=== PATIENT | male | born 1985 | race Caucasian/White ===

== ENCOUNTER 2022-04-28 16:34 | Inpatient (IN) | payer MEDICAID, SELFPAY ==
[2022-04-28 16:45] VITALS: BMI 26.6
--- NOTE | 2022-04-28 16:55 | W.ED.PSYCHS ---
HPI - Psych General: Chief Complaint: ER Hold Stated Complaint: PSYCHOSIS Time Seen by Provider: 04/28/22 16:35 Source: patient and EMS Mode of arrival: EMS Limitations: no limitations History of Present Illness: 36-year-old male who is currently homeless states that he did arrive yesterday and [place] he states that he has been having some hallucinations he states that he feels like that he can control animals at times he denies any suicidal homicidal thoughts. He denies any worsening improving factors. Patient is disheveled. He is paranoid as well with his hallucinations patient is not on any meds Associated symptoms: Reports delusions Review of Systems Const: Denies: fever(s), chills, body aches or change in appetite Eyes: Denies: blurry vision or eye discomfort ENMT: Denies: throat pain or dental pain Card: Denies: chest pain Resp: Denies: dyspnea GI: Denies: abdominal pain, nausea, vomiting or diarrhea : Denies: dysuria Musc: Denies: neck pain or back pain Skin/Breast: Denies: rash Neuro: Denies: headache(s) Psych: Reports: paranoia Virgilio/Lymph: Denies: easy bruising All/Imm: Denies: urticaria PFSH ED PFSH: Social History (Updated 04/28/22 @ 16:56 by Lisa Ash MD) Substance/Drug Use: current Physical Exam Const: COMMON NORMALS: patient oriented x3 GENERAL APPEARANCE: disheveled HENMT: COMMON NORMALS: normocephalic and atraumatic HEAD & SCALP: normocephalic and atraumatic Eye: COMMON NORMALS: Equal, round and reactive pupils present and EOMs intact bilaterally PUPIL: Yes Equal, round and reactive pupils present Neck/C-Spine: COMMON NORMALS: full ROM and supple Chest: COMMONS NORMALS: normal inspection of the chest and normal palpation of entire chest wall Resp: COMMON NORMALS: normal respiratory effort, No retractions, No use of accessory muscles and clear to auscultation bilaterally AUSCULTATION: clear to auscultation bilaterally Cardio: COMMON NORMALS: regular rate, regular rhythm and No murmurs present (Cardio) RATE: regular rate RHYTHM: regular rhythm GI: COMMON NORMALS: Normal to inspection, nondistended, normoactive bowel sounds present, Soft to palpation, non-tender and no masses PALPATION: Yes Soft to palpation Extremity: COMMON NORMALS: normal to inspection and full ROM Neuro: COMMON NORMALS: patient oriented x3, moves all extremities and no focal motor deficits Psych: COMMON NORMALS: cooperative THOUGHT CONTENT: Yes delusions and Yes Hallucination(s) present Skin: COMMON NORMALS: no rashes or lesions noted and no wounds GENERAL SKIN EXAM: no rashes or lesions noted Course Vital Signs: Vital signs: Vital Signs Pulse Rate 63 04/29/22 04:04 Respiratory Rate 18 04/29/22 04:04 Blood Pressure 96/59 04/29/22 04:04 Pulse Oximetry 96 04/29/22 04:04 Oxygen Delivery Me thod 04/29/22 01:24 MDM - Psych Medical Decision Making Patient presents here with acute psychosis. Patient is having hallucinations he is paranoid as well. He believes that he is able to control animals I patient evaluated by Dr. Dorado he feels he needs to be admitted at this time patient placed under 96-hour hold as he is psychotic and unsafe on his own Lab Data : 04/28/22 20:20 04/28/22 20:20 Discharge Plan Discharge Patient Disposition: Admitted As Inpatient Admit Provider: Jameel Dorado Clinical Impression: Acute psychosis Condition: Stable Coding Level of Care Code ED Human Resources Compensation Analyst for Chg Fwd Exam Comprehensive
[2022-04-28] MEDS: LORazepam 2 mg Tablet PO (18:17)
[2022-04-28] MEDS: ziprasidone 20 mg/mL SDV IM (18:17)
[2022-04-28 20:59] LABS: Basophils % 0.5 %; Eosinophils % 0.6 %; Hematocrit 44.8 % (42.0-52.0); Hemoglobin 14.9 g/dL (11.7-16.6); Lymphocytes # 2.1 10^3/uL (0.8-4.8); Lymphocytes % 31.7 %; Mean Corpuscular HGB Conc 33.3 g/dL (30.0-36.0); Mean Corpuscular Volume 96.1 fl (80-94); Mean Platelet Volume 10.7 fL (7.4-10.4); Monocytes # 0.4 10^3/uL (0.2-0.9); Monocytes % 6.3 %; Neutrophils # 3.95 10^3/uL (1.8-7.7); Neutrophils % 60.7 %; Nucleated Red Blood Cells % 0 %; Platelet Count 218 10^3/cmm (130-400); Red Blood Count 4.66 10^6/uL (4.1-5.3); Red Cell Distribution Width 12.6 % (12.1-15.1); White Blood Count 6.5 10^3/uL (4.0-10.0)
[2022-04-28 21:16] LABS: Alanine Aminotransferase 12 U/L (0-41); Albumin Level 3.9 g/dL (3.5-5.2); Alkaline Phosphatase 105 U/L (40-130); Blood Urea Nitrogen 17 mg/dL (6-20); Calcium 9.2 mg/dL (8.5-10.5); Carbon Dioxide 24 mmol/L (22-29); Chloride 104 mmol/L (98-107); Globulin 2.7 g/dL (1.3-4.6); Glomerular Filtration Rate 129.1 mL/min (90-130); Glucose 102 mg/dL (65-115); Osmolality Calculated 290 mOsm/kg (285-295); Sodium 139 mmol/L (136-145); Total Bilirubin 0.2 mg/dL (0.15-1.2); Total Protein 6.6 g/dL (6.6-8.7)
[2022-04-28 21:19] LABS: Acetaminophen < 5.0 ug/mL (10-30); Alcohol Level < 10 mg/dL (0-10); Aspartate Amino Transferase 17 U/L (0-40); Salicylate < 0.3 mg/dL (3-10)
[2022-04-29 01:15] LABS: Amphetamines Screen Urine Negative (Negative); Barbiturates Screen Urine Negative (Negative); Benzodiazepines Screen Urine Positive (Negative); Cocaine Screen Urine Negative (Negative); Opiate Screen Urine Negative (Negative); PCP Screen Urine Negative (Negative); THC Screen Urine Positive (Negative)
[2022-04-29 01:22] VITALS: BP 106/68; PULSE 94; RESP 18; O2SAT 97
[2022-04-29 04:04] VITALS: BP 96/59; PULSE 63; RESP 18; O2SAT 96
--- NOTE | 2022-04-29 04:38 | PC.NURSE ---
Pt awake and making conversation. He states he was in [place] where he gained a following of people who wanted to jain him so he had to leave. [place] he lived in airport terminals and other places along the way where he had to eat ketchup packets at times to survive. Pt in no apparent distress and requested coffee and food. Pt was given a cup of coffee, a sandwich, and a fruit cup.
[2022-04-29] MEDS: nicotine 21 mg Patch 1 PATCH TRANSDERMA ×2 (05:47→18:39)
[2022-04-29] MEDS: OLANZapine 5 mg ODT PO (07:05)
--- NOTE | 2022-04-29 08:35 | PC.NURSE ---
Pt given breakfast tray, he ate and is sleeping now
[2022-04-29 09:28] VITALS: BP 90/52; PULSE 84; RESP 14
[2022-04-29 18:42] VITALS: BP 121/73; PULSE 70; RESP 14
[2022-04-30 00:50] VITALS: PULSE 58; RESP 18; O2SAT 96
[2022-04-30 06:42] VITALS: BP 118/77; PULSE 71; RESP 18
[2022-04-30] MEDS: OLANZapine 5 mg ODT PO (08:56)
[2022-04-30] MEDS: nicotine 21 mg Patch 1 PATCH TRANSDERMA (08:57)
[2022-04-30 11:55] VITALS: BP 118/77; PULSE 78; RESP 16; O2SAT 96
[2022-04-30 14:00] VITALS: BP 104/75; PULSE 83; RESP 16; TEMP 36.7; O2SAT 97
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
[2022-04-30 20:18] VITALS: BP 104/58; PULSE 80; RESP 18; TEMP 36.3; O2SAT 96
[2022-05-01] MEDS: alum-mag-hydroxide-sime 30 mL UDC PO (05:50)
[2022-05-01 06:00] VITALS: BP 113/73; PULSE 85; RESP 18; TEMP 36.9; O2SAT 96
[2022-05-01] MEDS: nicotine 21 mg Patch 1 PATCH TRANSDERMA (08:13)
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
[2022-05-01 14:00] VITALS: BP 117/84; PULSE 89; RESP 16; TEMP 37; O2SAT 98
[2022-05-01 21:27] VITALS: BP 108/67; PULSE 80; RESP 18; TEMP 36.6; O2SAT 96
[2022-05-02] MEDS: hyDROXYzine 25 mg Capsule 50 MG PO (02:07)
--- NOTE | 2022-05-02 03:31 | PC.NURSE ---
50mg vistaril given for anxiety / sleep with good result.
[2022-05-02 06:00] VITALS: BP 103/62; PULSE 86; RESP 18; TEMP 36.6; O2SAT 97
[2022-05-02] MEDS: nicotine 21 mg Patch 1 PATCH TRANSDERMA (08:28)
[2022-05-02 14:00] VITALS: BP 126/75; PULSE 85; RESP 18; TEMP 36.6; O2SAT 99
--- NOTE | 2022-05-02 16:41 | W.PM.NPUPNS ---
Subjective NPU Subjective: Patient presents today reporting that he continues to be resistant to medication. He continues to tell odd stories about the circumstances that led to him being there. He continues to report that he has had significant addiction issues in the past but reports over the last 6 months that save a few situations he has been very solid in his recovery. Even though there were moments and at times inappropriate smiles and laughter, he has been much clearer in conversation today. He endorses not liking medications make him feel and not believing he has psychosis. Mental Status Exam MSE Comments: This is a well-nourished well-developed bearded white male in hospital scrubs with limited grooming and eye contact. No abnormal movements except for psychomotor studies. Cooperative with exam in mild distress. Inappropriate smiling and occasional laughter. Speech was more spontaneous and more normal rate and volume. Mood described as better, affect less subdued, but odd. Thought process becoming more organized. Thought content: He had no inwardly or outwardly directed aggression, no delusions reported but clear paranoid, persecutory, bizarre delusions noted, there were no auditory or visual hallucinations noted but at times he did appear to be attending to internal stimuli. Attention concentration appeared limited and memory was limited but none were formally tested. He is alert and oriented x3, but not purpose. Insight, judgment and impulse control are impaired. Vitals/I&O/Wt Last Vital Signs Temp 98.2 F 05/02/22 21:24 Pulse 82 05/02/22 21:24 Resp 20 H 05/02/22 21:24 BP 113/68 05/02/22 21:24 Pulse Ox 98 05/02/22 21:24 O2 Del Method 05/02/22 21:24 Data NPU : 04/28/22 20:20 04/28/22 20:20 A&P Assessment and plan (1) Acute psychosis: Status: Acute Plan This 36-year-old white male with a long history of mental health and addiction issues who presents with active psychosis and not on any medication. 1. Continue current medication. We will start Invega 6 mg p.o. every morning if we obtain his permission. 2. Continue every 15 minute checks safety. 3. Encourage individual, group and milieu therapy. 4. Encourage sober living treatment after discharge at the high level of care to which he is willing to commit. 5. Attempt to find sources for collateral information. Involuntary Hold Information 96 Hour Hold: 96 Hour Involuntary Admission: Yes 96 Hour Hold Ending Date: 04/04/22 96 Hour Hold Ending Time: 00:01 Attestations NPU Medical Necessity Statement*: Inpatient hospitalization is medically necessary if he could be appropriate intervention at this time. We will monitor medications and initiate or make changes as indicated. Likely to stay 6-9 days. Coding Level of Care Code Acute Bilingual Interpreter for Dalton Fwmimi Diagnoses Acute psychosis F23
[2022-05-02 21:24] VITALS: BP 113/68; PULSE 82; RESP 20; TEMP 36.8; O2SAT 98
[2022-05-03 06:00] VITALS: BP 102/61; PULSE 87; RESP 18; TEMP 36.7; O2SAT 97
--- NOTE | 2022-05-03 08:20 | PC.NURSE ---
Nursing Behavioral Assessment Patient states he slept well last night. He denies any visual or auditory hallucinations. He does state he dreams of his past, but didn't elaborate. When asked what his reasoning was for moving from [place] to [place] he stated, Ummm, do you really want to know? When I let him know I was comfortable with knowing the patient stated when he lived in [place] he sent out a signal in the shape of a hand with an eye in the middle. He stated he then believed he was now in different societies due to this, including the [employer]. He believes when he was at [employer] all of the trees there were hollow. He also stated he noticed all of the staff were and when he would talk they would all get on their phones. Patient stated he started to get weird calls from his friends. He also stated he was addicted to opiates and kept methadone on the side as insurance. Patient states every time he reads a book he starts at the first paragraph of the fourth chapter and it is the same as his life. Patient was calm and cooperative.
[2022-05-03] MEDS: nicotine 21 mg Patch 1 PATCH TRANSDERMA (08:50)
[2022-05-03 14:00] VITALS: BP 120/74; PULSE 68; RESP 18; TEMP 36.8; O2SAT 96
--- NOTE | 2022-05-03 16:51 | P.NPUPN_ITS ---
Subjective NPU Subjective: Patient presents today showing continued improvement in cognitive clearing. He continues to be resistant to the idea of medications and seems to be having resolution of his disorganization that was noted on admission. We discussed the plan for evaluation in the morning so the decision can be made about whether filed for a 21-day hold versus discharging him would be most appropriate. We discussed the fact that given his improvement in his resistance to medication likely plan will be for discharge with referrals appropriate resources and position that if he returned and was having similar thought disorder we will lean towards extending and insisting upon medication. Mental Status Exam MSE Comments: This is a well-nourished well-developed bearded white male in hospital scrubs with limited grooming and eye contact. No abnormal movements except for mild psychomotor retardation. Cooperative with exam in no acute distress. Speech was more spontaneous and more normal rate and volume. Mood described as better, affect less subdued and less odd. Thought process becoming more organized. Thought content: He denies suicidal or homicidal ideation, no delusions reported and paranoid, persecutory, bizarre delusions greatly reduced, there were no auditory or visual hallucinations noted. Attention concentration appeared improving and memory was more reliable but none were formally tested. He is alert and oriented x3. Insight, judgment and impulse control are improving. Vitals/I&O/Wt Last Vital Signs Temp 98.0 F 05/03/22 06:00 Pulse 87 05/03/22 06:00 Resp 18 05/03/22 06:00 BP 102/61 05/03/22 06:00 Pulse Ox 97 05/03/22 06:00 O2 Del Method 05/03/22 06:00 Data NPU : 04/28/22 20:20 04/28/22 20:20 A&P Assessment and plan (1) Acute psychosis: Status: Acute Plan This 36-year-old white male with a long history of mental health and addiction issues who presents with active psychosis and not on any medication. 1. Continue current medication. Patient resistant to medication likely discharge off of medication but refer to psychiatry. 2. Continue every 15 minute checks safety. 3. Encourage individual, group and milieu therapy. 4. Encourage sober living treatment after discharge at the high level of care to which he is willing to commit. 5. Likely discharged to [facility] tomorrow with follow-up and continued encouragement including in both mental health and sober living treatment. Involuntary Hold Information 96 Hour Hold: 96 Hour Involuntary Admission: Yes 96 Hour Hold Ending Date: 04/04/22 96 Hour Hold Ending Time: 00:01 Attestations NPU Medical Necessity Statement*: Inpatient hospitalization is medically necessary if he could be appropriate intervention at this time. We will monitor medications and initiate or make changes as indicated. Likely discharge tomorrow. Coding Level of Care Code Acute Mechanical Assembly Technician for Dalton Boyer Diagnoses Acute psychosis F23
[2022-05-03 20:25] VITALS: RESP 18
[2022-05-04 06:00] VITALS: BP 110/67; PULSE 72; RESP 18; TEMP 36.5; O2SAT 98
[2022-05-04] MEDS: nicotine 21 mg Patch 1 PATCH TRANSDERMA (08:41)
--- NOTE | 2022-05-04 08:48 | PC.NURSE ---
PT SITTING ON BENCH NEAR NURSES STATION. STATES HE IS ALWAYS ANXIOUS BUT DECLINES MEDICATIONS TO REDUCE ANXIETY. GUERLINE COMMENTS I NEED TO GET ALL THAT WASTE OUT OF MY SYSTEM AND DON'T NEED ANYMORE, IT MAKES ME NOT FEEL RIGHT. STATES HE IS SLEEPING BETTER. REPORTS ANXIETY 01/20 AND BUT CONTINUES TO DECLINE MEDICATIONS. DENIES SI/HI AND AVH AT THIS TIME. SUPPORT VOICED.
--- NOTE | 2022-05-04 11:04 | W.PM.NPUDCS ---
Diagnoses at Discharge Discharge Diagnosis (1) Acute psychosis: Status: Acute Reason for Visit Reason for Visit: PSYCHOSIS Brief History: History of Present Illness Jocelyn Dorado is a 36 year old male who presented Emergency Department with the following report: Chief Complaint: ER Hold Stated Complaint: PSYCHOSIS Time Seen by Provider: 04/28/22 16:35 Source: patient and EMS Mode of arrival: EMS Limitations: no limitations History of Present Illness: 36-year-old male who is currently homeless states that he did arrive yesterday and [place] he states that he has been having some hallucinations he states that he feels like that he can control animals at times he denies any suicidal homicidal thoughts. He denies any worsening improving factors. Patient is disheveled. He is paranoid as well with his hallucinations patient is not on any meds Associated symptoms: Reports delusions. He was admitted to the neuropsychiatric unit for definitive treatment of those issues. He presents today being fairly odd in his interactions with staff and this telegraphic typewriter repairer. He wrote a love letter to one of the nurses that was fairly abstract and hard to follow and was basically a collection of pictures and names there were also fairly abstract. Much of his conversation was hard to follow and marked by disorganization. He did share that he has been hospitalized multiple times in his life and cannot really identify outpatient services. He did endorse at some point taking Abilify but was alluding to not really liking it. He denied taking Invega in the past and agreed to consider starting that tomorrow. He did share a history of drug use that likely encompasses every drug if needed something or not, that he used. But other than that he mostly had interactions and responses with inappropriate smiling and occasional laughter. An excerpt from his 2011 inpatient stay here is included below for context. He was diagnosed with bipolar disorder and borderline personality disorder in that hospitalization. Per his 12/26/2010 [facility] inpatient psychiatric evaluation: DATE OF ADMISSION: 12/25/2010 DATE OF DICTATION: 12/26/2010 DATE OF : 1985 IDENTIFYING DATA: The patient is a 25-year-old unemployed single white male with a date of of 1985. He is on a 96-hour hold. PRESENT PROBLEM: Suicidality. HISTORY OF PRESENT PROBLEM: This 25-year-old white male was admitted via the emergency room. He drinks daily and he was watching a friend's cat when he was intoxicated. The cat got away and he was upset and placed a hose on the exhaust of his car into the car, trying to commit suicide. When he went back to leave something for them, they stopped him from harming himself. He cut himself with a knife on the arms. He is unemployed. He is unable to hold any employment. He has no legal actions pending. He is currently unemployed. 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 He has had a negative history of physical, emotional, or sexual abuse. He states that he has in the past has experienced auditory hallucinations. He has had financial problems and he has had loss of a job. Admission laboratory studies show him to be positive for marijuana. He had 183 blood alcohol. His parents had . He has four siblings. There is a questionable history of schizophrenia in his family. He has had a brother that has attempted suicide. The remainder of his history was unremarkable. Hospital Course Hospital Course He slowly acclimated to the individual, group and milieu therapies provided.? From the beginning he was resistant to the fact that he needed to be in the hospital and was resistant to the idea that he needed medication. We had considered putting him on a 21-day hold but over the period of the hospitalization his disorganization and psychosis slowly resolved to the point that he no longer appeared to be confused at a level that would pose a danger to himself or others. We continue to discuss the fact that we still believe he has a psychiatric illness that needs treated but lacked grounds to really pursue an extended stay. We agreed though that if he returns with similar presentation that we would feel compelled to move to a point where we could administer medication even if it was against as will. He showed significant improvement and was able to contract for safety outside of the hospital prior to discharge.? During the hospitalization, patient had routine laboratory studies which were within normal limits except for few outliers.? Additionally there was a general medical evaluation which was also within normal limits and revealed no new acute processes. Discharge Summary: At the time of discharge, he denied lethality and psychosis was resolving.? Mood and anxiety were well managed.? Patient endorsed a plan to avoid all drugs of abuse and follow-up with the aftercare recommendations of the treatment team.? Patient was evaluated and deemed to be absent credible lethality, and had achieved significant benefit from an inpatient hospitalization and his hold was ending and we lacked solid grounds to force continued hospitalization, so he was discharged. Involuntary Hold Information 96 Hour Hold: 96 Hour Involuntary Admission: Yes 96 Hour Hold Ending Date: 04/04/22 96 Hour Hold Ending Time: 00:01 Mental Status Exam MSE Comments: This is a well-nourished well-developed bearded white male in hospital scrubs with limited grooming and eye contact. No abnormal movements except for mild psychomotor retardation. Cooperative with exam in no acute distress. Speech was more spontaneous and more normal rate and volume. Mood described as better, affect less subdued and less odd. Thought process becoming more organized. Thought content: He denies suicidal or homicidal ideation, no delusions reported and paranoid, persecutory, bizarre delusions greatly reduced, there were no auditory or visual hallucinations noted. Attention concentration appeared improving and memory was more reliable but none were formally tested. He is alert and oriented x3. Insight, judgment and impulse control are improving. Discharge Data Studies Completed and Pending: Laboratory Results WBC 6.5 10^3/uL (4.0- 10.0) 04/28/22 20:20 RBC 4.66 10^6/uL (4.1 -5.3) 04/28/22 20:20 Hgb 14.9 g/dL (11.7-1 6.6) 04/28/22 20:20 Hct 44.8 % (42.0-52.0 ) 04/28/22 20:20 MCV 96.1 fl (80-94) H 04/28/22 20:20 MCH 32.0 pg (28.0-34. 0) 04/28/22 20:20 MCHC 33.3 g/dL (30.0-3 6.0) 04/28/22 20:20 RDW 12.6 % (12.1-15.1 ) 04/28/22 20:20 Plt Count 218 10^3/cmm (130 -400) 04/28/22 20:20 MPV 10.7 fL (7.4-10.4 ) H 04/28/22 20:20 Neut % (Auto) 60.7 % 04/28/22 20:20 Lymph % (Auto) 31.7 % 04/28/22 20:20 [place] % (Auto) 6.3 % 04/28/22 20:20 Eos % (Auto) 0.6 % 04/28/22 20:20 Baso % (Auto) 0.5 % 04/28/22 20:20 Neut # (Auto) 3.95 10^3/uL (1.8 -7.7) 04/28/22 20:20 Lymph # (Auto) 2.1 10^3/uL (0.8- 4.8) 04/28/22 20:20 [place] # (Auto) 0.4 10^3/uL (0.2- 0.9) 04/28/22 20:20 Eos # (Auto) 0.0 10^3/uL (0.0- 0.8) 04/28/22 20:20 Baso # (Auto) 0.0 10^3/uL (0.0- 0.1) 04/28/22 20:20 Nucleated RBC % (a uto) 0 % 04/28/22 20:20 Nucleated RBCs # 0.0 /100WBC 04/28/22 20:20 Sodium 139 mmol/L (136-1 45) 04/28/22 20:20 Potassium 4.0 mmol/L (3.5-5 .1) 04/28/22 20:20 Chloride 104 mmol/L (98-10 7) 04/28/22 20:20 Carbon Dioxide 24 mmol/L (22-29) 04/28/22 20:20 Anion Gap 15.0 (5-19) 04/28/22 20:20 BUN 17 mg/dL (6-20) 04/28/22 20:20 Creatinine 0.7 mg/dL (0.7-1. 2) 04/28/22 20:20 GFR Calculation 129.1 mL/min (90- 130) 04/28/22 20:20 Glucose 102 mg/dL (65-115 ) 04/28/22 20:20 Calculated Osmolal ity 290 mOsm/kg (285- 295) 04/28/22 20:20 Calcium 9.2 mg/dL (8.5-10 .5) 04/28/22 20:20 Total Bilirubin 0.2 mg/dL (0.15-1 .2) 04/28/22 20:20 AST 17 U/L (0-40) 04/28/22 20:20 ALT 12 U/L (0-41) 04/28/22 20:20 Alkaline Phosphata se 105 U/L (40-130) 04/28/22 20:20 Total Protein 6.6 g/dL (6.6-8.7 ) 04/28/22 20:20 Albumin 3.9 g/dL (3.5-5.2 ) 04/28/22 20:20 Globulin 2.7 g/dL (1.3-4.6 ) 04/28/22 20:20 Salicylates < 0.3 mg/dL (3-10 ) L 04/28/22 20:20 Urine Opiates Scre en Negative ng/mL (N egative) 04/29/22 00:31 Acetaminophen < 5.0 ug/mL (10-3 0) L 04/28/22 20:20 Ur Barbiturates Sc reen Negative ng/mL (N egative) 04/29/22 00:31 Ur Phencyclidine S crn Negative ng/mL (N egative) 04/29/22 00:31 Ur Amphetamines Sc reen Negative ng/mL (N egative) 04/29/22 00:31 U Benzodiazepines Scrn Positive ng/mL (N egative) H 04/29/22 00:31 Urine Cocaine Scre en Negative ng/mL (N egative) 04/29/22 00:31 U Marijuana (THC) Screen Positive ng/mL (N egative) H 04/29/22 00:31 Ethyl Alcohol < 10 mg/dL (0-10) 04/28/22 20:20 Vitals: Last Vital Signs Temp 97.7 F 05/04/22 06:00 Pulse 72 05/04/22 06:00 Resp 18 05/04/22 06:00 BP 110/67 05/04/22 06:00 Pulse Ox 98 05/04/22 06:00 O2 Del Method 05/04/22 06:00 Discharge Plan Discharge Patient Disposition: Home Condition: Stable Prescriptions: No Action No Known Home Medications Discharge Orders: Discharge Order (Routine); Ordered 05/04/22 Ordered By: Jameel Dorado Referrals: [facility] [place] [facility] [Outside] Discharge Diet: Regular Discharge Activity: Resume usual activity Patient Instructions: Opioid Safety Discharge Attestations NPU Time Spent in Discharge Care*: less than 30 min Specific Discharge Activities: Specific discharge activities: educating patient, discussing with case maker/social workers/dc planners, documenting/other paperwork and evaluating patient/reviewing data Coding Level of Care Code Acute Chg FW DC note Diagnoses Acute psychosis F23
[2022-05-04 11:28] VITALS: BP 110/67; PULSE 72; RESP 18; TEMP 36.5; O2SAT 98
== END 2022-05-04 12:08 | disposition home or self-care (01) | DRG 885 ==
LOC: ER 19:26 → ER IP 04-29 06:12 → NP 05-01 07:54
PROVIDERS: Admitting Provider Psychiatry & Neurology Psychiatry; Emergency Provider Emergency Medicine; Visit Provider Psychiatry & Neurology Psychiatry
DX: F23 Brief psychotic disorder (principal); Z59.00 Homelessness unspecified
CPT/HCPCS: 36415; 80053; 80306; 80307; 85025; 96372; 97150; 97165; 99285; J3486

== ENCOUNTER 2022-05-17 15:28 | Inpatient (IN) | payer MEDICAID, SELFPAY ==
[2022-05-17 15:55] VITALS: BP 131/81; PULSE 85; RESP 16; TEMP 36.6; O2SAT 97; BMI 25.8
--- NOTE | 2022-05-17 15:59 | ED_ITS ---
HPI - General Adult General: Chief complaint: Psychiatric Symptoms Stated complaint: psych evaluaton Time Seen by Provider: 05/17/22 15:53 History of Present Illness: HPI: [36]yo patient w/ hx of hallucination presenting with worsening auditory hallucinations and psychosis. for On arrival, the patient is AAOx3 and cooperative with my evaluation. No focal complaints of chest pain, shortness of breath, palpitations, N/V, focal GI/ complaints. Currently denies SI/HI. Onset: acute Duration: ongoing Location: home Severity: severe Associated symptoms: Deny chest pain, dyspnea, nausea, rash, palpitations or vomiting Review of Systems Const: Denies: fever(s) or chills Eyes: Denies: change in vision ENMT: Denies: mouth pain Card: Denies: chest pain or palpitations Resp: Denies: dyspnea or non-productive cough GI: Denies: abdominal pain, nausea, vomiting or diarrhea : Denies: dysuria Musc: Denies: extremity pain Skin/Breast: Denies: rash or new lesions Neuro: Denies: weakness in extremities Psych: Reports: other (+psychosis, hallucinations) Virgilio/Lymph: Denies: easy bruising PFSH ED PFSH: Medical History Hallucination Social History Smoking and tobacco status: never smoked Alcohol intake: never Substance/Drug Use: never Physical Exam Const: COMMON NORMALS: alert HENMT: COMMON NORMALS: atraumatic HEAD & SCALP: atraumatic MOUTH: moist mucous membranes not abnormal Eye: COMMON NORMALS: EOMs intact bilaterally and conjunctivae normal CONJUNCTIVA: Yes conjunctivae normal Neck/C-Spine: COMMON NORMALS: full ROM and supple Resp: COMMON NORMALS: normal respiratory effort and clear to auscultation bilaterally AUSCULTATION: clear to auscultation bilaterally Cardio: COMMON NORMALS: regular rate RATE: regular rate GI: COMMON NORMALS: Soft to palpation and non-tender PALPATION: Yes Soft to palpation Extremity: COMMON NORMALS: full ROM Neuro: SENSORIUM/ORIENTATION: Yes alert MOTOR EXAM: No Abnormal motor strength present and Other motor observations present (no focal motor deficits) Psych: COMMON NORMALS: speech normal SPEECH: Yes normal speech MOOD & AFFECT: Yes euthymic mood Course Vital Signs: Vital signs: Vital Signs Temperature 97.8 F 05/17/22 16:00 Pulse Rate 80 05/17/22 16:00 Respiratory Rate 16 05/17/22 16:00 Blood Pressure 130/75 05/17/22 16:00 Pulse Oximetry 97 05/17/22 16:00 Oxygen Delivery Me thod 05/17/22 16:00 MDM - General Adult Medical Decision Making [36]yo patient w/ hx of hallucinations presenting for psychosis and auditory hallucination. HDS, exam within normal limit Thoughts are linear and organized, and the patient has no VH, SI or HI. Clinically the patient displays no overt toxidrome; they are well appearing, with low suspicion for toxic ingestion given history and exam. Symptoms unlikely 2/2 anemia, hypothyroidism, infection, or ICH. Workup: CBC, CMP, Lipase, salicylate/tylenol, serum ethanol, UDS Lab findings: wnl, +marijuana in the urine [4:30pm] On reassessment, labs and workup wnl. Patient is hemodynamically stable with no acute medical complaints. Case discussed with psychiatric provider Dr. Hull at [facility] psych inpatient with recommendation for admission Disposition: Psych Lab Data : 05/17/22 17:40 05/17/22 17:40 Laboratory Results WBC 6.9 10^3/uL (4.0-10.0) 05/17/22 17:40 RBC 4.98 10^6/uL (4.1-5.3) 05/17/22 17:40 Hgb 15.9 g/dL (11.7-16.6) 05/17/22 17:40 Hct 48.1 % (42.0-52.0) 05/17/22 17:40 MCV 96.6 fl (80-94) H 05/17/22 17:40 MCH 31.9 pg (28.0-34.0) 05/17/22 17:40 MCHC 33.1 g/dL (30.0-36.0) 05/17/22 17:40 RDW 12.7 % (12.1-15.1) 05/17/22 17:40 Plt Count 200 10^3/cmm (130-400) 05/17/22 17:40 MPV 10.9 fL (7.4-10.4) H 05/17/22 17:40 Neut % (Auto) 63.9 % 05/17/22 17:40 Lymph % (Auto) 26.2 % 05/17/22 17:40 [place] % (Auto) 6.4 % 05/17/22 17:40 Eos % (Auto) 2.8 % 05/17/22 17:40 Baso % (Auto) 0.6 % 05/17/22 17:40 Neut # (Auto) 4.40 10^3/uL (1.8-7.7) 05/17/22 17:40 Lymph # (Auto) 1.8 10^3/uL (0.8-4.8) 05/17/22 17:40 [place] # (Auto) 0.4 10^3/uL (0.2-0.9) 05/17/22 17:40 Eos # (Auto) 0.2 10^3/uL (0.0-0.8) 05/17/22 17:40 Baso # (Auto) 0.0 10^3/uL (0.0-0.1) 05/17/22 17:40 Nucleated RBC % (auto) 0 % 05/17/22 17:40 Nucleated RBCs # 0.0 /100WBC 05/17/22 17:40 Sodium 139 mmol/L (136-145) 05/17/22 17:40 Potassium 4.1 mmol/L (3.5-5.1) 05/17/22 17:40 Chloride 103 mmol/L (98-107) 05/17/22 17:40 Carbon Dioxide 25 mmol/L (22-29) 05/17/22 17:40 Anion Gap 15.1 (5-19) 05/17/22 17:40 BUN 10 mg/dL (6-20) 05/17/22 17:40 Creatinine 0.8 mg/dL (0.7-1.2) 05/17/22 17:40 GFR Calculation 110.7 mL/min (90-130) 05/17/22 17:40 Glucose 117 mg/dL (65-115) H 05/17/22 17:40 Calculated Osmolality 288 mOsm/kg (285-295) 05/17/22 17:40 Calcium 8.8 mg/dL (8.5-10.5) 05/17/22 17:40 Total Bilirubin 0.3 mg/dL (0.15-1.2) 05/17/22 17:40 AST 13 U/L (0-40) 05/17/22 17:40 ALT 14 U/L (0-41) 05/17/22 17:40 Alkaline Phosphatase 117 U/L (40-130) 05/17/22 17:40 Total Protein 6.7 g/dL (6.6-8.7) 05/17/22 17:40 Albumin 3.9 g/dL (3.5-5.2) 05/17/22 17:40 Globulin 2.8 g/dL (1.3-4.6) 05/17/22 17:40 Lipase 22 U/L (13-60) 05/17/22 17:40 Salicylates < 0.3 mg/dL (3-10) L 05/17/22 17:40 Urine Opiates Screen Negative ng/mL (Negative) 05/17/22 17:26 Acetaminophen < 5.0 ug/mL (10-30) L 05/17/22 17:40 Ur Barbiturates Screen Negative ng/mL (Negative) 05/17/22 17:26 Ur Phencyclidine Scrn Negative ng/mL (Negative) 05/17/22 17:26 Ur Amphetamines Screen Negative ng/mL (Negative) 05/17/22 17:26 U Benzodiazepines Scrn Negative ng/mL (Negative) 05/17/22 17:26 Urine Cocaine Screen Negative ng/mL (Negative) 05/17/22 17:26 U Marijuana (THC) Screen Positive ng/mL (Negative) H 05/17/22 17:26 Ethyl Alcohol < 10 mg/dL (0-10) 05/17/22 17:40 Discharge Plan Discharge Patient Disposition: Admitted As Inpatient Clinical Impression: Psychosis, Auditory hallucination Coding Level of Care Code 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
[2022-05-17 16:00] VITALS: BP 130/75; PULSE 80; RESP 16; TEMP 36.6; O2SAT 97
[2022-05-17 17:47] LABS: Amphetamines Screen Urine Negative (Negative); Barbiturates Screen Urine Negative (Negative); Benzodiazepines Screen Urine Negative (Negative); Cocaine Screen Urine Negative (Negative); Opiate Screen Urine Negative (Negative); PCP Screen Urine Negative (Negative); THC Screen Urine Positive (Negative)
[2022-05-17 17:49] LABS: Basophils % 0.6 %; Eosinophils # 0.2 10^3/uL (0.0-0.8); Eosinophils % 2.8 %; Hematocrit 48.1 % (42.0-52.0); Hemoglobin 15.9 g/dL (11.7-16.6); Lymphocytes # 1.8 10^3/uL (0.8-4.8); Lymphocytes % 26.2 %; Mean Corpuscular HGB Conc 33.1 g/dL (30.0-36.0); Mean Corpuscular Hemoglobin 31.9 pg (28.0-34.0); Mean Corpuscular Volume 96.6 fl (80-94); Mean Platelet Volume 10.9 fL (7.4-10.4); Monocytes # 0.4 10^3/uL (0.2-0.9); Monocytes % 6.4 %; Neutrophils % 63.9 %; Nucleated Red Blood Cells % 0 %; Platelet Count 200 10^3/cmm (130-400); Red Blood Count 4.98 10^6/uL (4.1-5.3); Red Cell Distribution Width 12.7 % (12.1-15.1); White Blood Count 6.9 10^3/uL (4.0-10.0)
[2022-05-17 18:20] LABS: Alanine Aminotransferase 14 U/L (0-41); Albumin Level 3.9 g/dL (3.5-5.2); Alkaline Phosphatase 117 U/L (40-130); Anion Gap 15.1 (5-19); Aspartate Amino Transferase 13 U/L (0-40); Blood Urea Nitrogen 10 mg/dL (6-20); Calcium 8.8 mg/dL (8.5-10.5); Carbon Dioxide 25 mmol/L (22-29); Chloride 103 mmol/L (98-107); Creatinine Clr Calc Pharmacy 123.8691; Globulin 2.8 g/dL (1.3-4.6); Glomerular Filtration Rate 110.7 mL/min (90-130); Glucose 117 mg/dL (65-115); Lipase 22 U/L (13-60); Osmolality Calculated 288 mOsm/kg (285-295); Potassium 4.1 mmol/L (3.5-5.1); Sodium 139 mmol/L (136-145); Total Bilirubin 0.3 mg/dL (0.15-1.2); Total Protein 6.7 g/dL (6.6-8.7)
[2022-05-17 18:26] LABS: Acetaminophen < 5.0 ug/mL (10-30); Alcohol Level < 10 mg/dL (0-10); Salicylate < 0.3 mg/dL (3-10)
[2022-05-17 19:52] VITALS: BP 137/80; PULSE 79; RESP 16; TEMP 36.6; O2SAT 97
[2022-05-17 22:04] VITALS: BP 130/74; PULSE 85; RESP 18; TEMP 36.7; O2SAT 96
[2022-05-18 06:00] VITALS: BP 105/68; PULSE 79; RESP 16; TEMP 36.6; O2SAT 97
--- NOTE | 2022-05-18 09:37 | P.NPUHP_ITS ---
Providers/Chief Complaint Admitting Physician: Gonzalo Hull MD Chief Complaint: psych evaluaton HPI NPU History of Present Illness Matthew Dorado is a 36 year old male who presented to the emergency department with the following report: Chief complaint: Psychiatric Symptoms Stated complaint: psych evaluaton Time Seen by Provider: 05/17/22 15:53 History of Present Illness: HPI: [36]yo patient w/ hx of hallucination presenting with worsening auditory hallucinations and psychosis. for On arrival, the patient is AAOx3 and cooperative with my evaluation. No focal complaints of chest pain, shortness of breath, palpitations, N/V, focal GI/ complaints. Currently denies SI/HI. Onset: acute Duration: ongoing Location: home Severity: severe Associated symptoms: Deny chest pain, dyspnea, nausea, rash, palpitations or vomiting. He was admitted to the neuropsychiatric unit for definitive treatment of those issues. He presented today reporting that he is not sure exactly what happened. He told some fantastical stories about things happening that were most likely a representation of his psychosis. He described a situation where he was scraping his plate and that his fork was no longer there. He reported that as a sign that he was getting forked. He then was able to describe other situations where a [employer] facility appeared out of nowhere. It was unclear whether the hallucination was it not being there initially or it being there secondarily. He was mostly disorganized in the conversation and a fairly poor historian. We did however discuss our discharge conversation from April here and I described to him that I thought he was suffering from schizophrenia and that medication would be the appropriate intervention to avoid future of psychosis and psychotic episodes. But we gave him the benefit of the doubt in that situation and discharged him even though we felt strongly he needed the psychopharmacologic interventions. We discussed that now what he is reporting again appears to represent psychosis and that there is a need for medication management. We discussed the risks, benefits and alternatives of initiating Invega and he understood and agreed to proceed as is documented in this note. An excerpt of his 05/01/2022 inpatient [facility] is included below for context and the absence of substantive changes since then. Per his 05/01/22 health care inpatient psychiatric evaluation: History of Present Illness Jocelyn Dorado is a 36 year old male who presented Emergency Department with the following report: Chief Complaint: ER Hold Stated Complaint: PSYCHOSIS Time Seen by Provider: 04/28/22 16:35 Source: patient and EMS Mode of arrival: EMS Limitations: no limitations History of Present Illness:?? 36-year-old male who is currently homeless states that he did arrive yesterday and [place] he states that he has been having some hallucinations he states that he feels like that he can control animals at times he denies any suicidal homicidal thoughts.? He denies any worsening improving factors.? Patient is disheveled.? He is paranoid as well with his hallucinations patient is not on any meds Associated symptoms: Reports delusions. He was admitted to the neuropsychiatric unit for definitive treatment of those issues.? He presents today being fairly odd in his interactions with staff and this senior underwriter.? He wrote a love letter to one of the nurses that was fairly abstract and hard to follow and was basically a collection of pictures and names there were also fairly abstract.? Much of his conversation was hard to follow and marked by disorganization.? He did share that he has been hospitalized multiple times in his life and cannot really identify outpatient services.? He did endorse at some point taking Abilify but was alluding to not really liking it.? He denied taking Invega in the past and agreed to consider starting that tomorrow.? He did share a history of drug use that likely encompasses every drug if needed something or not, that he used.? But other than that he mostly had interactions and responses with inappropriate smiling and occasional laughter.? An excerpt from his 2011 inpatient stay here is included below for context.? He was diagnosed with bipolar disorder and borderline personality disorder in that hospitalization. Per his 12/26/2010 [facility] inpatient psychiatric evaluation: DATE OF ADMISSION:? 12/25/2010 DATE OF DICTATION:? 12/26/2010 DATE OF :? 1985 IDENTIFYING DATA: ? The patient is a 25-year-old unemployed single white male with a date of of 1985.? He is on a 96-hour hold. PRESENT PROBLEM:? Suicidality. HISTORY OF PRESENT PROBLEM:? This 25-year-old white male was admitted via the emergency room. ? He drinks daily and he was watching a friend's cat when he was intoxicated.? The cat got away and he was upset and placed a hose on the exhaust of his car into the car, trying to commit suicide.? When he went back to leave something for them, they stopped him from harming himself.? He cut himself with a knife on the arms.? He is unemployed.? He is unable to hold any employment.? He has no legal actions pending.? He is currently unemployed.? 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 He has had a negative history of physical, emotional, or sexual abuse.? He states that he has in the past has experienced auditory hallucinations.? He has had financial problems and he has had loss of a job.? Admission laboratory studies show him to be positive for marijuana.? He had 183 blood alcohol.? His parents had .? He has four siblings.? There is a questionable history of schizophrenia in his family.? He has had a brother that has attempted suicide.? The remainder of his history was unremarkable. Meds NPU Home Medications Medication Instructions Recorded Confirmed Last Taken Type No Known Home Medications 04/28/22 05/17/22 Unknown History Allergies Allergy/AdvReac Type Severity Reaction Status Date / Time No Known Allergies Allergy Verified 05/17/22 16:10 [facility] NPU PFS: Medical History Hallucination Social History Smoking and tobacco status: never smoked Alcohol intake: never Substance/Drug Use: never Mental Status Exam MSE Comments: This is a well-nourished well-developed bearded white male in h ospital scrubs with limited grooming and eye contact. No abnormal movements except for psychomotor studies. Cooperative with exam in mild distress. Inappropriate smiling and occasional laughter. Speech was limited and decreased rate and volume. Mood described as okay, affect subdued and odd. Thought process disorganized. Thought content: He had no inwardly or outwardly directed aggression, no delusions reported but clear paranoid, persecutory, bizarre delusions noted, there were no auditory or visual hallucinations reported however the stories that he told likely represented hallucinations. At times he did appear to be attending to internal stimuli. Attention concentration appeared limited and memory was limited but none were formally tested. He is alert and oriented x3, but not purpose. Insight, judgment and impulse control are impaired. Vitals/I&O/Wt Last Vital Signs Temp 97.9 F 05/18/22 06:00 Pulse 79 05/18/22 06:00 Resp 16 05/18/22 06:00 BP 105/68 05/18/22 06:00 Pulse Ox 97 05/18/22 06:00 O2 Del Method 05/17/22 20:15 Weight last 48 hrs Weight 72.575 kg Data NPU : 05/17/22 17:40 05/17/22 17:40 A&P Assessment and plan (1) Acute psychosis: (2) Auditory hallucination: (3) Schizophrenia: Plan This 36-year-old white male with a long history of mental health and addiction issues who presents with active psychosis and not on any medication. 1. Continue current medication. Invega 6 mg p.o. daily and hope to move to the long-acting injection 2. Continue every 15 minute checks safety. 3. Encourage individual, group and milieu therapy. 4. Encourage sober living treatment after discharge at the high level of care to which he is willing to commit. Involuntary Hold Information 96 Hour Hold: 96 Hour Involuntary Admission: No Attestations NPU Medical Necessity Statement*: Inpatient hospitalization is medically necessary if he could be appropriate intervention at this time. We will monitor medications and initiate or make changes as indicated. He will be in the hospital for over 2 midnights. Likely to stay 4-6 days. Coding Level of Care Code Acute Security Patrol Officer for Dalton Boyer Diagnoses Acute psychosis F23 Auditory hallucination R44.0 Schizophrenia F20.9
[2022-05-18] MEDS: nicotine 4 mg lozenge MUCOUS MEM (13:14)
[2022-05-18 14:00] VITALS: BP 108/65; PULSE 85; RESP 17; TEMP 36.7; O2SAT 96
[2022-05-18 20:46] VITALS: BP 98/60; PULSE 78; RESP 16; TEMP 36.6; O2SAT 95
[2022-05-19 06:00] VITALS: BP 116/64; PULSE 76; RESP 16; TEMP 36.6; O2SAT 96
[2022-05-19] MEDS: paliperidone ER 6 mg Tablet PO (08:52)
--- NOTE | 2022-05-19 09:46 | NUR.SHIFT ---
Pt presents calm and cooperative for assessment in dayroom. denies HI, but reports I am suicidal all the time. no plan, just whatever. pt denies HI/VH/pain. reports auditory hallucinations of people repeating everything I say, knocking and scratching stuff denies vh reports anx 6/10 and depression 4/10. 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
[2022-05-19 14:00] VITALS: BP 97/58; PULSE 76; RESP 15; TEMP 36.6; O2SAT 96
--- NOTE | 2022-05-19 17:49 | W.PM.NPUPNS ---
Subjective NPU Subjective: Patient presents today reporting that he does not have the Invega made him feel. He endorsed having some tiredness after taking medication. We discussed that that is all part of adjusting the medication to a nighttime dose and he unfortunately understood but expressed a desire not to take it anymore. 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 We agreed we would discuss in the morning. Mental Status Exam MSE Comments: This is a well-nourished well-developed bearded white male in hospital scrubs with limited grooming and eye contact. No abnormal movements except for psychomotor studies. Cooperative with exam in mild distress. Inappropriate smiling present. Speech was limited and decreased rate and volume. Mood described as okay, affect subdued and odd. Thought process disorganized. Thought content: He had no inwardly or outwardly directed aggression, no delusions reported but clear paranoid, persecutory, bizarre delusions noted, there were no auditory or visual hallucinations reported however the stories that he told likely represented hallucinations. At times he did appear to be attending to internal stimuli. Attention concentration appeared limited and memory was limited but none were formally tested. He is alert and oriented x3, but not purpose. Insight, judgment and impulse control are impaired. Vitals/I&O/Wt Last Vital Signs Temp 98 F 05/19/22 14:00 Pulse 76 05/19/22 14:00 Resp 15 05/19/22 14:00 BP 97/58 05/19/22 14:00 Pulse Ox 96 05/19/22 14:00 O2 Del Method 05/17/22 20:15 Data NPU : 05/17/22 17:40 05/17/22 17:40 A&P Assessment and plan (1) Acute psychosis: (2) Auditory hallucination: (3) Schizophrenia: Plan This 36-year-old white male with a long history of mental health and addiction issues who presents with active psychosis and not on any medication. 1. Continue current medication. Invega 6 mg p.o. daily and hope to move to the long-acting injection 2. Continue every 15 minute checks safety. 3. Encourage individual, group and milieu therapy. 4. Encourage sober living treatment after discharge at the high level of care to which he is willing to commit. 5. May need to place a 96-hour hold tomorrow. Involuntary Hold Information 96 Hour Hold: 96 Hour Involuntary Admission: No Attestations NPU Medical Necessity Statement*: Inpatient hospitalization is medically necessary if he could be appropriate intervention at this time. We will monitor medications and initiate or make changes as indicated. Likely to stay 7-10 days. 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
[2022-05-19 20:26] VITALS: BP 90/50; PULSE 75; RESP 16; O2SAT 96
[2022-05-20 05:10] VITALS: BP 104/74; PULSE 82; RESP 18; O2SAT 98
--- NOTE | 2022-05-20 07:54 | PC.NURSE ---
Addendum entered by Karley Espinoza LPN 05/20/22 15:01: at this time pt agreeable to taking scheduled Invega Original Note: refused scheduled Invega, pt told this nurse I don't want to take any of my meds, I just don't want to get addicted to any of them, I don't like how they make me feel
--- NOTE | 2022-05-20 11:37 | PC.NURSE ---
received a call from security reporting that this patient has called several times requesting them to come because he was being held against his will. pt never mentioned wanting to leave during assessment or any conversations this nurse has the pt even mentioned leaving or wanting to leave. notified provider. 96 hour hold initiated and notice of rights given to patient.
[2022-05-20] MEDS: nicotine 21 mg Patch 1 PATCH TRANSDERMA (11:43)
[2022-05-20 14:00] VITALS: BP 114/72; PULSE 91; RESP 15; TEMP 36.8; O2SAT 98
[2022-05-20] MEDS: paliperidone ER 6 mg Tablet PO (15:00)
--- NOTE | 2022-05-20 17:18 | W.PM.NPUPNS ---
Subjective NPU Subjective: Patient presents today reporting that he really does not take the medication anymore. He could not articulate what was wrong with the medication just endorsing to take it anymore. Then we discussed his desire to be discharged sooner rather than later and that the medication was a significant for him getting the discharge sooner and he agreed to my initial proposal to switch the medication to bedtime as he was saying it made him a little tired. He was again discussed our conversation at discharge about concerns about him not being treated for his schizophrenia and consideration of a 96-hour hold. Mental Status Exam MSE Comments: This is a well-nourished well-developed bearded white male in hospital scrubs with limited grooming and eye contact. No abnormal movements except for psychomotor studies. Cooperative with exam in mild distress. Inappropriate smiling present. Speech was limited and decreased rate and volume. Mood described as tired I would like this medication, affect subdued and odd. Thought process disorganized. Thought content: He had no inwardly or outwardly directed aggression, no delusions reported but clear paranoid, persecutory, bizarre delusions noted, there were no auditory or visual hallucinations reported however the stories that he told likely represented hallucinations. At times he did appear to be attending to internal stimuli. Attention concentration appeared limited and memory was limited but none were formally tested. He is alert and oriented x3, but not purpose. Insight, judgment and impulse control are impaired. Vitals/I&O/Wt Last Vital Signs Temp 98.3 F 05/20/22 14:00 Pulse 84 05/20/22 21:09 Resp 16 05/20/22 21:09 BP 115/68 05/20/22 21:09 Pulse Ox 96 05/20/22 21:09 O2 Del Method 05/20/22 05:10 Data NPU : 05/17/22 17:40 05/17/22 17:40 A&P Assessment and plan (1) Acute psychosis: (2) Auditory hallucination: (3) Schizophrenia: Plan This 36-year-old white male with a long history of mental health and addiction issues who presents with active psychosis and not on any medication. 1. Continue current medication. Change the Invega 6 mg p.o. daily to p.o. nightly and hope to move to the long-acting injection 2. Continue every 15 minute checks safety. 3. Encourage individual, group and milieu therapy. 4. Encourage sober living treatment after discharge at the high level of care to which he is willing to commit. 5. Placed on a 96-hour hold. Involuntary Hold Information 96 Hour Hold: 96 Hour Involuntary Admission: No Attestations NPU Medical Necessity Statement*: Inpatient hospitalization is medically necessary if he could be appropriate intervention at this time. We will monitor medications and initiate or make changes as indicated. Likely to stay 7-10 days. 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
[2022-05-20 21:09] VITALS: BP 115/68; PULSE 84; RESP 16; O2SAT 96
[2022-05-21 06:00] VITALS: BP 98/58; PULSE 73; RESP 18; TEMP 36.5; O2SAT 94
--- NOTE | 2022-05-21 08:40 | PC.NURSE ---
refused scheduled Invega at this time, pt stated he doesn't like how it makes him feel highly encouraged by staff to take scheduled medications, pt cont to refuse. butter maker aware, will relay to Dr. Dorado as well. will cont to encourage pt to take meds
--- NOTE | 2022-05-21 11:32 | W.PM.NPUPNS ---
Subjective NPU Subjective: Patient presents today reporting that he is feeling like he is ready to go. He had obvious frustration with this investment underwriter identified that he did not. He did accept the medication situation would be quite challenging for him. A long discussion about how he feels natural ways are better than medications. He was resistant to medication but identified that he would take it in hopes of a quicker discharge. Mental Status Exam MSE Comments: This is a well-nourished well-developed bearded white male in hospital scrubs with limited grooming and eye contact. No abnormal movements except for psychomotor studies. Cooperative with exam in mild distress. Inappropriate smiling present. Speech was limited and decreased rate and volume. Mood described as I would like to discharge as soon as possible, affect subdued and odd. Thought process disorganized. Thought content: He had no inwardly or outwardly directed aggression, no delusions reported but clear paranoid, persecutory, bizarre delusions noted, there were no auditory or visual hallucinations reported however the stories that he told likely represented hallucinations. At times he did appear to be attending to internal stimuli. Attention concentration appeared limited and memory was limited but none were formally tested. He is alert and oriented x3, but not purpose. Insight, judgment and impulse control are impaired. Vitals/I&O/Wt Last Vital Signs Temp 98.3 F 05/20/22 14:00 Pulse 84 05/20/22 21:09 Resp 16 05/20/22 21:09 BP 115/68 05/20/22 21:09 Pulse Ox 96 05/20/22 21:09 O2 Del Method 05/20/22 05:10 Data NPU : 05/17/22 17:40 05/17/22 17:40 A&P Assessment and plan (1) Acute psychosis: (2) Auditory hallucination: (3) Schizophrenia: Plan This 36-year-old white male with a long history of mental health and addiction issues who presents with active psychosis and not on any medication. 1. Continue current medication. Change the Invega 6 mg p.o. daily to p.o. nightly and hope to move to the long-acting injection 2. Continue every 15 minute checks safety. 3. Encourage individual, group and milieu therapy. 4. Encourage sober living treatment after discharge at the high level of care to which he is willing to commit. 5. On a 96-hour hold. Involuntary Hold Information 96 Hour Hold: 96 Hour Involuntary Admission: No Attestations NPU Medical Necessity Statement*: Inpatient hospitalization is medically necessary if he could be appropriate intervention at this time. We will monitor medications and initiate or make changes as indicated. Likely to stay 7-10 days. Coding Level of Care Code Acute Bag Sealer for g Fwd Diagnoses Acute psychosis F23 Auditory hallucination R44.0 Schizophrenia F20.9
[2022-05-21] MEDS: nicotine 4 mg lozenge MUCOUS MEM (13:37)
[2022-05-21 14:00] VITALS: BP 136/79; PULSE 95; RESP 16; TEMP 36.8; O2SAT 97
--- NOTE | 2022-05-21 15:36 | NUR.SHIFT ---
pt presents bright and flirty with nurses. pt reports ah for my consciouness denies si/hi/vh. reports bm 05/20. good appetite. anxiety 12/20 and depression 02/19. reports I'm not taking that medicine the doctor wants me to take. there is nothing wrong with me. i need a neurologist. 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
[2022-05-21] MEDS: paliperidone ER 6 mg Tablet PO (20:11)
[2022-05-21 20:27] VITALS: BP 97/59; PULSE 74; RESP 16; TEMP 36.5; O2SAT 96
[2022-05-22] MEDS: nicotine 4 mg lozenge MUCOUS MEM ×2 (04:00→13:30)
[2022-05-22 06:00] VITALS: BP 98/61; PULSE 87; RESP 16; TEMP 36.5; O2SAT 97
--- NOTE | 2022-05-22 11:12 | W.PM.NPUPNS ---
Subjective NPU Subjective: Patient presents today and resistant to the idea of medication but agreed to take it and hope that he does not have to stay here longer. He reports that he did not give him problems taken as an evening dose. We discussed considering taking an injection to avoid his natural inclination not to engage in medication. We also discussed the possible limitations him not having his Medicaid might have currently. Mental Status Exam MSE Comments: This is a well-nourished well-developed bearded white male in hospital scrubs with limited grooming and eye contact. No abnormal movements except for psychomotor studies. Cooperative with exam in mild distress. Inappropriate smiling present. Speech was limited and decreased rate and volume. Mood described as okay, affect subdued and odd. Thought process more organized. Thought content: He denied suicidal or homicidal ideations, no delusions reported and less paranoid, persecutory, bizarre delusions noted, there were no auditory or visual hallucinations reported. At times he did appear to be attending to internal stimuli. Attention concentration appeared limited and memory was limited but none were formally tested. He is alert and oriented x3, but not purpose. Insight, judgment are improving and impulse control is limited. Vitals/I&O/Wt Last Vital Signs Temp 98.2 F 05/22/22 22:00 Pulse 96 05/22/22 22:00 Resp 18 05/22/22 22:00 BP 116/80 05/22/22 22:00 Pulse Ox 96 05/22/22 22:00 O2 Del Method 05/22/22 14:00 Weight last 48 hrs Weight 75.478 kg Data NPU : 05/17/22 17:40 05/17/22 17:40 A&P Assessment and plan (1) Acute psychosis: (2) Auditory hallucination: (3) Schizophrenia: Plan This 36-year-old white male with a long history of mental health and addiction issues who presents with active psychosis and not on any medication. 1. Continue current medication. Changed the Invega 6 mg p.o. daily to p.o. nightly and hope to move to the long-acting injection 2. Continue every 15 minute checks safety. 3. Encourage individual, group and milieu therapy. 4. Encourage sober living treatment after discharge at the high level of care to which he is willing to commit. 5. On a 96-hour hold. Involuntary Hold Information 96 Hour Hold: 96 Hour Involuntary Admission: No Attestations NPU Medical Necessity Statement*: Inpatient hospitalization is medically necessary if he could be appropriate intervention at this time. We will monitor medications and initiate or make changes as indicated. Likely to stay 6-9 days. 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
[2022-05-22 14:00] VITALS: BP 133/78; PULSE 93; RESP 16; TEMP 36.6; O2SAT 99
[2022-05-22] MEDS: nicotine 2 mg Gum BUCCAL (19:42)
[2022-05-22] MEDS: paliperidone ER 6 mg Tablet PO (20:39)
[2022-05-22 21:26] VITALS: BP 116/80; PULSE 96; RESP 18; TEMP 36.8; O2SAT 96
[2022-05-22 21:28] VITALS: BP 116/80; PULSE 96; RESP 18; TEMP 36.8; O2SAT 96
[2022-05-22 22:00] VITALS: BP 116/80; PULSE 96; RESP 18; TEMP 36.8; O2SAT 96
[2022-05-23] MEDS: nicotine 4 mg lozenge MUCOUS MEM ×2 (05:37→15:34)
[2022-05-23 06:00] VITALS: BP 103/74; PULSE 87; RESP 18; TEMP 36.3; O2SAT 97
[2022-05-23 14:00] VITALS: BP 117/81; PULSE 90; RESP 16; TEMP 36.8; O2SAT 97
--- NOTE | 2022-05-23 17:05 | P.NPUPN_ITS ---
Subjective NPU Subjective: Patient presents today taking his Invega in the evening and reporting that he is having limited to no side effects at that time. We discussed them that have much more comfort and considering discharge if he explored the long-acting injectable given his pattern of ambivalence about medication overall. He reported he will consider taking Invega Sustenna. Mental Status Exam MSE Comments: This is a well-nourished well-developed shaved white male in hospital scrubs with appropriate grooming and eye contact. No abnormal movements except for mild psychomotor retardation. Cooperative with exam in mild distress. Less inappropriate smiling present. Speech was more spontaneous and decreased rate and volume. Mood described as better, you should let me go, affect less subdued and odd. Thought process more organized. Thought content: He denied suicidal or homicidal ideations, no delusions reported and less paranoid, persecutory, bizarre delusions noted, there were no auditory or visual hallucinations reported. At times he did appear to be attending to internal stimuli. Attention concentration appeared limited and memory was limited but none were formally tested. He is alert and oriented x3, but not purpose. Insight, judgment are improving and impulse control is limited, but improving. Vitals/I&O/Wt Last Vital Signs Temp 97.9 F 05/23/22 20:38 Pulse 96 05/23/22 20:38 Resp 18 05/23/22 20:38 BP 125/65 05/23/22 20:38 Pulse Ox 98 05/23/22 20:38 O2 Del Method 05/22/22 14:00 Data NPU : 05/17/22 17:40 05/17/22 17:40 A&P Assessment and plan (1) Acute psychosis: (2) Auditory hallucination: (3) Schizophrenia: Plan This 36-year-old white male with a long history of mental health and addiction issues who presents with active psychosis and not on any medication. 1. Continue current medication. Changed the Invega 6 mg p.o. daily to p.o. nightly and hope to move to the long-acting injection 2. Continue every 15 minute checks safety. 3. Encourage individual, group and milieu therapy. 4. Encourage sober living treatment after discharge at the high level of care to which he is willing to commit. 5. On a 96-hour hold. Involuntary Hold Information 96 Hour Hold: 96 Hour Involuntary Admission: No Attestations NPU Medical Necessity Statement*: Inpatient hospitalization is medically necessary if he could be appropriate intervention at this time. We will monitor medications and initiate or make changes as indicated. Likely to stay 5-8 days. Coding Level of Care Code Acute Unit Support Representative for g Fwd Diagnoses Acute psychosis F23 Auditory hallucination R44.0 Schizophrenia F20.9
[2022-05-23 20:38] VITALS: BP 125/65; PULSE 96; RESP 18; TEMP 36.6; O2SAT 98
[2022-05-23] MEDS: paliperidone ER 6 mg Tablet PO (20:51)
[2022-05-24 06:00] VITALS: BP 121/63; PULSE 70; RESP 16; TEMP 36.7; O2SAT 96
[2022-05-24] MEDS: nicotine 2 mg Gum BUCCAL (06:39)
--- NOTE | 2022-05-24 12:59 | W.PM.NPUPNS ---
Subjective NPU Subjective: Patient presents today reporting that he is feeling better and wanting to discharge soon as possible. We continue to negotiate and hopes he would consider long-acting injectable. He revealed today that he would definitely stop the medication with a vision that he needed to see how he would be off of the medication. We discussed that the period time before starting medication was the test off the medication, but he did not seem to follow that logic or rationale. Mental Status Exam MSE Comments: This is a well-nourished well-developed shaved white male in hospital scrubs with appropriate grooming and eye contact. No abnormal movements except for mild psychomotor retardation. Cooperative with exam in mild distress. Less inappropriate smiling present. Speech was more spontaneous and decreased rate and volume. Mood described as better, affect less subdued and odd. Thought process more organized. Thought content: He denied suicidal or homicidal ideations, no delusions reported and less paranoid, persecutory, bizarre delusions noted, there were no auditory or visual hallucinations reported. At times he did appear to be attending to internal stimuli. Attention concentration appeared limited and memory was limited but none were formally tested. He is alert and oriented x3, but not purpose. Insight, judgment are improving and impulse control is limited, but improving. Vitals/I&O/Wt Last Vital Signs Temp 97.9 F 05/23/22 20:38 Pulse 96 05/23/22 20:38 Resp 18 05/23/22 20:38 BP 125/65 05/23/22 20:38 Pulse Ox 98 05/23/22 20:38 O2 Del Method 05/22/22 14:00 Data NPU : 05/17/22 17:40 05/17/22 17:40 A&P Assessment and plan (1) Acute psychosis: (2) Auditory hallucination: (3) Schizophrenia: Plan This 36-year-old white male with a long history of mental health and addiction issues who presents with active psychosis and not on any medication. 1. Continue current medication. Changed the Invega 6 mg p.o. daily to p.o. nightly and hope to move to the long-acting injection 2. Continue every 15 minute checks safety. 3. Encourage individual, group and milieu therapy. 4. Encourage sober living treatment after discharge at the high level of care to which he is willing to commit. 5. On a 96-hour hold. Likely plan for 21-day hold. Involuntary Hold Information 96 Hour Hold: 96 Hour Involuntary Admission: No Attestations NPU Medical Necessity Statement*: Inpatient hospitalization is medically necessary if he could be appropriate intervention at this time. We will monitor medications and initiate or make changes as indicated. Likely to stay 5-8 days. Coding Level of Care Code Acute Hvac Sales Representative for Dalton Boyer Diagnoses Acute psychosis F23 Auditory hallucination R44.0 Schizophrenia F20.9
[2022-05-24] MEDS: nicotine 4 mg lozenge MUCOUS MEM ×2 (13:14→18:20)
[2022-05-24] MEDS: acetaminophen 325 mg Tablet 650 MG PO (13:14)
[2022-05-24 14:00] VITALS: BP 125/81; PULSE 90; RESP 18; TEMP 36.8; O2SAT 97
[2022-05-24] MEDS: trazodone 50 mg Tablet PO (20:49)
[2022-05-24] MEDS: paliperidone ER 6 mg Tablet PO (20:49)
[2022-05-24 21:57] VITALS: BP 113/72; PULSE 80; RESP 16; TEMP 36.9; O2SAT 97
[2022-05-25] MEDS: nicotine 4 mg lozenge MUCOUS MEM (04:43)
[2022-05-25 06:00] VITALS: BP 109/77; PULSE 81; RESP 17; TEMP 36.7; O2SAT 99
--- NOTE | 2022-05-25 08:53 | PC.NURSE ---
Behavioral Assessment Patient denies AH/VH at this time and denies SI/HI. Patient stated before he came to the unit animals were speaking to him and he heard a dog saying things like, Saskia sanchez? He said every time he got on a [employer] bus there would only be one seat left for him. He also said someone said, don't forget about Nery, and that Nery was someone he met in a treatment program that he was worried about. Patient states he thinks it's weird that people always have their phones out around him and that he thinks some of them take pictures of him. Patient's thoughts are very disorganized.
[2022-05-25 14:00] VITALS: BP 108/68; PULSE 76; RESP 20; TEMP 36.8; O2SAT 96
--- NOTE | 2022-05-25 16:06 | P.NPUPN_ITS ---
Subjective NPU Subjective: Patient presents today initially continuing his position that his mother discontinue medication and was unwilling to consider the benefits of the injection. We continued to talk about how not being on a long-acting injectable might extend his length of stay. Eventually was agreeable to initiating Invega Sustenna 234 mg IM to the deltoid. For the first loading dose. He denies any additional issues. Mental Status Exam MSE Comments: This is a well-nourished well-developed shaved white male in hospital scrubs with appropriate grooming and eye contact. No abnormal movements except for mild psychomotor retardation. Cooperative with exam in mild distress. Less inappropriate smiling present. Speech was more spontaneous and decreased rate and volume. Mood described as better, affect less subdued and odd. Thought process more organized. Thought content: He denied suicidal or homicidal ideations, no delusions reported and less paranoid, persecutory, bizarre delusions noted, there were no auditory or visual hallucinations reported. At times he did appear to be attending to internal stimuli. Attention concentration appeared limited and memory was limited but none were formally tested. He is alert and oriented x3, but not purpose. Insight, judgment are improving and impulse control is limited, but improving. Vitals/I&O/Wt Last Vital Signs Temp 98.3 F 05/25/22 14:00 Pulse 76 05/25/22 14:00 Resp 20 H 05/25/22 14:00 BP 108/68 05/25/22 14:00 Pulse Ox 96 05/25/22 14:00 O2 Del Method 05/25/22 14:00 Data NPU : 05/17/22 17:40 05/17/22 17:40 A&P Assessment and plan (1) Acute psychosis: (2) Auditory hallucination: (3) Schizophrenia: Plan This 36-year-old white male with a long history of mental health and addiction issues who presents with active psychosis and not on any medication. 1. Continue current medication. Changed the Invega 6 mg p.o. daily to p.o. nightly. Initiate Invega Sustenna 234 mg IM to the deltoid first loading dose. 2. Continue every 15 minute checks safety. 3. Encourage individual, group and milieu therapy. 4. Encourage sober living treatment after discharge at the high level of care to which he is willing to commit. 5. On a 96-hour hold. file 21-day hold tomorrow. Involuntary Hold Information 96 Hour Hold: 96 Hour Involuntary Admission: No Attestations NPU Medical Necessity Statement*: Inpatient hospitalization is medically necessary if he could be appropriate intervention at this time. We will monitor medications and initiate or make changes as indicated. Likely to stay 6-9 days. Coding Level of Care Code Acute Environmental Scientists for [facility] Fwd Diagnoses Acute psychosis F23 Auditory hallucination R44.0 Schizophrenia F20.9
[2022-05-25] MEDS: paliperidone palmitate 234 mg Syringe IM (20:51)
[2022-05-25] MEDS: trazodone 50 mg Tablet PO (20:51)
[2022-05-25 21:28] VITALS: BP 120/73; PULSE 84; RESP 17; TEMP 36.5; O2SAT 96
[2022-05-26] MEDS: nicotine 4 mg lozenge MUCOUS MEM ×2 (05:00→16:41)
[2022-05-26 05:48] VITALS: BP 110/67; PULSE 93; RESP 17; TEMP 36.9; O2SAT 98
--- NOTE | 2022-05-26 09:50 | PC.NURSE ---
Behavioral Assessment Patient denies SI/HI. Patient denies AH/VH. However he talks about past experiences where he had hallucinated. He stated that people on motorcycles had go-pros on and hanging around their necks and he felt as if he was being videoed. He then switched the subject to one of his old girlfriends that he lived with and that he helped raise her kids. He then began talking about a movie where a man and his daughter fell in love and the man asked to be hypnotized to erase his memory of falling in love with her. The topics of conversation that he made changed quickly and several times. Patient cooperative.
--- NOTE | 2022-05-26 11:11 | P.NPUPN_ITS ---
Subjective NPU Subjective: Patient presents today reporting that he feels like he will be able to manage himself outside of the hospital. We discussed our desire to have him get both injections of the Invega Sustenna prior to discharge. Also that we wanted to work with the treatment team to have some kind of reasonable placement and not have him living in abandoned buildings. He was discussing being somewhat comfortable to being homeless. And we discussed the challenges of doing that and maintaining good mental health. We discussed the 21-day hold being filed this morning. Mental Status Exam MSE Comments: This is a well-nourished well-developed shaved white male in hospital scrubs with appropriate grooming and eye contact. No abnormal movements except for mild psychomotor retardation. Cooperative with exam in mild distress. Less inappropriate smiling present. Speech was more spontaneous and more normal rate and volume. Mood described as better, affect less subdued and odd. Thought process more organized. Thought content: He denied suicidal or homicidal ideations, no delusions reported and less paranoid, persecutory, bizarre delusions noted, there were no auditory or visual hallucinations reporte d. Attention concentration appeared limited and memory was limited but none were formally tested. He is alert and oriented x3, but not purpose. Insight, judgment are improving and impulse control is limited, but improving. Vitals/I&O/Wt Last Vital Signs Temp 98.4 F 05/26/22 05:48 Pulse 93 05/26/22 05:48 Resp 17 05/26/22 05:48 BP 110/67 05/26/22 05:48 Pulse Ox 98 05/26/22 05:48 O2 Del Method 05/26/22 05:48 Data NPU : 05/17/22 17:40 05/17/22 17:40 A&P Assessment and plan (1) Acute psychosis: (2) Auditory hallucination: (3) Schizophrenia: Plan This 36-year-old white male with a long history of mental health and addiction issues who presents with active psychosis and not on any medication. 1. Continue current medication. Changed the Invega 6 mg p.o. daily to p.o. nightly. Initiated Invega Sustenna 234 mg IM to the deltoid first loading dose 05/25/22. 2. Continue every 15 minute checks safety. 3. Encourage individual, group and milieu therapy. 4. Encourage sober living treatment after discharge at the high level of care to which he is willing to commit. 5. Filed 21-day hold this morning. Involuntary Hold Information 96 Hour Hold: 96 Hour Involuntary Admission: No Attestations NPU Medical Necessity Statement*: Inpatient hospitalization is medically necessary if he could be appropriate intervention at this time. We will monitor medications and initiate or make changes as indicated. Likely to stay 5-8 days. Coding Level of Care Code Acute Textile Stylist for Dalton Boyer Diagnoses Acute psychosis F23 Auditory hallucination R44.0 Schizophrenia F20.9
[2022-05-26 14:00] VITALS: BP 119/68; PULSE 91; RESP 16; TEMP 36.8; O2SAT 96
[2022-05-26 22:00] VITALS: BP 98/60; PULSE 77; RESP 18; O2SAT 94
[2022-05-27 06:00] VITALS: BP 121/71; PULSE 83; RESP 16; O2SAT 97
[2022-05-27] MEDS: nicotine 4 mg lozenge MUCOUS MEM (08:07)
--- NOTE | 2022-05-27 09:40 | W.PM.NPUPNS ---
Subjective NPU Subjective: Patient presented today reporting that he is wanting to discharge. We continued to discuss a plan to get him a second Invega injection prior to discharge. We discussed his 21-day hold hearing on Sunday. He reports a plan to go to [facility] will still take him but continues to have plan B been to go to abandoned buildings. He reports that he is sleeping better and denies any symptoms or issues. Mental Status Exam MSE Comments: This is a well-nourished well-developed shaved white male in hospital scrubs with appropriate grooming and eye contact. No abnormal movements except for mild psychomotor retardation. Cooperative with exam in mild distress. Speech was more spontaneous and more normal rate and volume. Mood described as better, affect less subdued and odd. Thought process more organized. Thought content: He denied suicidal or homicidal ideations, no delusions reported and less paranoid, persecutory, bizarre delusions noted, there were no auditory or visual hallucinations reported. Attention concentration appeared limited and memory was limited but none were formally tested. He is alert and oriented x3, but not purpose. Insight, judgment are improving and impulse control is limited, but improving. Vitals/I&O/Wt Last Vital Signs Temp 98.3 F 05/26/22 14:00 Pulse 77 05/26/22 22:00 Resp 18 05/26/22 22:00 BP 98/60 05/26/22 22:00 Pulse Ox 94 05/26/22 22:00 O2 Del Method 05/26/22 14:00 Data NPU : 05/17/22 17:40 05/17/22 17:40 A&P Assessment and plan (1) Acute psychosis: (2) Auditory hallucination: (3) Schizophrenia: Plan This 36-year-old white male with a long history of mental health and addiction issues who presents with active psychosis and not on any medication. 1. Continue current medication. Changed the Invega 6 mg p.o. daily to p.o. nightly. Initiated Invega Sustenna 234 mg IM to the deltoid first loading dose 05/25/22. 2. Continue every 15 minute checks safety. 3. Encourage individual, group and milieu therapy. 4. Encourage sober living treatment after discharge at the high level of care to which he is willing to commit. 5. Filed 21-day hold 05/26/2022. Involuntary Hold Information 96 Hour Hold: 96 Hour Involuntary Admission: No Attestations NPU Medical Necessity Statement*: Inpatient hospitalization is medically necessary if he could be appropriate intervention at this time. We will monitor medications and initiate or make changes as indicated. Likely to stay 4-7 days. 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
[2022-05-27 14:00] VITALS: BP 115/73; PULSE 82; RESP 16; TEMP 36.6; O2SAT 97
[2022-05-27] MEDS: nicotine 21 mg Patch 1 PATCH TRANSDERMA (14:18)
[2022-05-27 19:12] VITALS: BP 112/70; PULSE 90; RESP 17; TEMP 36.9; O2SAT 98
[2022-05-27] MEDS: trazodone 50 mg Tablet PO (19:45)
[2022-05-27] MEDS: hyDROXYzine 25 mg Capsule 50 MG PO (19:47)
[2022-05-27] MEDS: nicotine 2 mg Gum BUCCAL (19:47)
[2022-05-28 06:00] VITALS: BMI 26.9
[2022-05-28] MEDS: nicotine 4 mg lozenge MUCOUS MEM ×2 (06:45→16:36)
--- NOTE | 2022-05-28 08:51 | PC.NURSE ---
AT NURSES STATION MAKING NEGATIVE COMMENTS ABOUT DR. PT WAS VERBALY REDIRECTED AND ASKED NOT TO MAKE BAD REMARKS ABOUT THE DR. IN FRONT OF OTHER PTS. PT DID APOLAGIZE, BUT THEN STATED WELL ITS TRUE. THIS RN EXPRESSED THAT IT IS OKAY TO HAVE HIS OPINION IT JUST WAS NOT THE TIME OR PLACE TO MAKE SUCH DEROGITORY COMMENTS. PT THEN ASKED THIS RN FOR A THEASSORAUS. WHEN THIS RN STATED WE DID NOT HAVE ONE PT GOT UPSET AND STATED THIS PLACE IS STUPID, WHY WOULDN'T YOU HAVE THAT. THIS RN EXPLAINED TO PT WE ARE NOT [facility], IT IS A [facility]. PT WAS VERBALLY DESCALATED THEN LEFT NURSES STATION AND WENT TO DAY ROOM.
--- NOTE | 2022-05-28 10:49 | PC.NURSE ---
PT IN ROOM. DENIES SI/HI AND AVH AT THIS TIME. PT STATES YOU ALL JUST NEED TO LET ME LEAVE THIS PLACE. I WANT TO GO BACK ON THE STREETS FOR A 2 DAY HIATUS. THEN I MAY GO TO [facility]. INFORMED PT THAT DR. MADERA WOULD HAVE TO BE THE ONE THAT DISCHARGES PTS. NOT THIS RN. ANXIETY MEDS OFFERED BUT DECLINED.
--- NOTE | 2022-05-28 12:48 | W.PM.NPUPNS ---
Subjective NPU Subjective: Patient presents today seeming more accepting of the reality of the situation. We discussed the plan for getting in his second injection prior to discharge given his open and clear intention to discontinue the medication if he were on the oral medication still. He discussed being hopeful that he could go to [facility] and begin trying to explore employment to help support himself. He talked about how difficult it was to have a job when you do not have a place to shower. We discussed his hearing is tomorrow. Mental Status Exam MSE Comments: This is a well-nourished well-developed shaved white male in hospital scrubs with appropriate grooming and eye contact. No abnormal movements except for mild psychomotor retardation. Cooperative with exam in mild distress. Speech was more spontaneous and more normal rate and volume. Mood described as pretty good, affect less subdued and odd. Thought process more organized. Thought content: He denied suicidal or homicidal ideations, no delusions reported and less delusions noted, there were no auditory or visual hallucinations reported. Attention concentration appeared limited and memory was limited but none were formally tested. He is alert and oriented x3, but not purpose. Insight, judgment are improving and impulse control is limited, but improving. Vitals/I&O/Wt Last Vital Signs Temp 97.6 F 05/28/22 21:17 Pulse 95 05/28/22 21:17 Resp 18 05/28/22 21:17 BP 115/70 05/28/22 21:17 Pulse Ox 97 05/28/22 21:17 O2 Del Method 05/28/22 21:17 Weight last 48 hrs Weight 75.478 kg Data NPU : 05/17/22 17:40 05/17/22 17:40 A&P Assessment and plan (1) Acute psychosis: (2) Auditory hallucination: (3) Schizophrenia: Plan This 36-year-old white male with a long history of mental health and addiction issues who presents with active psychosis and not on any medication. 1. Continue current medication. Changed the Invega 6 mg p.o. daily to p.o. nightly. Initiated Invega Sustenna 234 mg IM to the deltoid first loading dose 05/25/22. 2. Continue every 15 minute checks safety. 3. Encourage individual, group and milieu therapy. 4. Encourage sober living treatment after discharge at the high level of care to which he is willing to commit. 5. 21-day hold hearing tomorrow. Involuntary Hold Information 96 Hour Hold: 96 Hour Involuntary Admission: No Attestations NPU Medical Necessity Statement*: Inpatient hospitalization is medically necessary if he could be appropriate intervention at this time. We will monitor medications and initiate or make changes as indicated. Likely length of stay 3-6 days. Coding Level of Care Code Acute Forest Botany Instructor for Dalton Boyer Diagnoses Acute psychosis F23 Auditory hallucination R44.0 Schizophrenia F20.9
[2022-05-28 14:00] VITALS: BP 93/54; PULSE 86; RESP 18; TEMP 37.2; O2SAT 94
[2022-05-28] MEDS: nicotine 2 mg Gum BUCCAL (19:48)
[2022-05-28] MEDS: hyDROXYzine 25 mg Capsule 50 MG PO (19:48)
[2022-05-28 21:17] VITALS: BP 115/70; PULSE 95; RESP 18; TEMP 36.4; O2SAT 97
[2022-05-29 06:00] VITALS: BP 120/72; PULSE 81; RESP 16; TEMP 37; O2SAT 97
[2022-05-29] MEDS: nicotine 4 mg lozenge MUCOUS MEM ×3 (08:13→18:00)
[2022-05-29 14:00] VITALS: BP 88/51; PULSE 76; RESP 17; TEMP 36.7; O2SAT 96
--- NOTE | 2022-05-29 14:34 | P.NPUPN_ITS ---
Subjective NPU Subjective: Patient presents today planning on going to his hearing. We had a lengthy discussion about the fact that we have filed for the 21-day hold but have no thoughts that he would be here longer than a week. We discussed needing enough time to get the second loading dose of Invega and had and making sure that there is a bed at [facility] for him to discharge to. He understood but still is desiring to leave as soon as possible. Mental Status Exam MSE Comments: This is a well-nourished well-developed shaved white male in hospital scrubs with appropriate grooming and eye contact. No abnormal movement s except for mild psychomotor retardation. Cooperative with exam in mild distress. Speech was more spontaneous and more normal rate and volume. Mood described as all right, affect less subdued and odd. Thought process more organized. Thought content: He denied suicidal or homicidal ideations, no delusions reported and less delusions noted, there were no auditory or visual hallucinations reported. Attention concentration appeared limited and memory was limited but none were formally tested. He is alert and oriented x3, but not purpose. Insight, judgment are improving and impulse control is limited, but improving. Vitals/I&O/Wt Last Vital Signs Temp 98.6 F 05/29/22 06:00 Pulse 81 05/29/22 06:00 Resp 16 05/29/22 06:00 BP 120/72 05/29/22 06:00 Pulse Ox 97 05/29/22 06:00 O2 Del Method 05/29/22 06:00 Weight last 48 hrs Weight 75.478 kg Data NPU : 05/17/22 17:40 05/17/22 17:40 A&P Assessment and plan (1) Acute psychosis: (2) Auditory hallucination: (3) Schizophrenia: Plan This 36-year-old white male with a long history of mental health and addiction issues who presents with active psychosis and not on any medication. 1. Continue current medication. Changed the Invega 6 mg p.o. daily to p.o. n ightly. Initiated Invega Sustenna 234 mg IM to the deltoid first loading dose 05/25/22. 2. Continue every 15 minute checks safety. 3. Encourage individual, group and milieu therapy. 4. Encourage sober living treatment after discharge at the high level of care to which he is willing to commit. 5. 21-day hold hearing today at 315. Involuntary Hold Information 96 Hour Hold: 96 Hour Involuntary Admission: No Attestations NPU Medical Necessity Statement*: Inpatient hospitalization is medically necessary if he could be appropriate intervention at this time. We will monitor medications and initiate or make changes as indicated. Likely length of stay 3-6 days. Coding Level of Care Code Acute Supplier Relationship Director for Dalton Mulligand Diagnoses Acute psychosis F23 Auditory hallucination R44.0 Schizophrenia F20.9
[2022-05-29] MEDS: trazodone 50 mg Tablet PO (20:19)
[2022-05-29] MEDS: hyDROXYzine 25 mg Capsule 50 MG PO (20:19)
[2022-05-29 22:00] VITALS: BP 126/69; PULSE 90; RESP 17; TEMP 36.7; O2SAT 94
[2022-05-30 06:00] VITALS: BP 102/62; PULSE 80; RESP 17; TEMP 36.8; O2SAT 95
--- NOTE | 2022-05-30 08:26 | PC.NURSE ---
ANOTHER PT CAME TO NURSING STAFF WITH COMPLAINTS OF THIS PT TALKING INAPPROPRIATELY IN THE DAY ROOM. THIS NURSE WENT TO THE DAY ROOM AND PT STATES THE LAST TIME I WAS HERE THERE WAS A LOT OF SINGLE WOMEN AND WE ALL TOUCHED EACH OTHERS BODIES. AT THAT TIME THIS NURSE INTERRUPTED AND REDIRECTED THE PT. PT WAS TOLD THAT IS NOT APPROPRIATE AND THAT TYPE OF CONVERSATION NEEDED TO STOP. ONCE ALL OF THE PATIENTS IN THE DAY ROOM WERE REDIRECTED THIS NURSE STEPPED OUTSIDE OF THE DOOR. THIS PT STATED TO ALL THAT THIS NURSE WAS BEING A BITCH AND BLEW THAT OUT OF PROPORTION . PT WAS THEN MOVED TO ANOTHER ROOM.
[2022-05-30] MEDS: nicotine 4 mg lozenge MUCOUS MEM ×2 (08:38→13:47)
--- NOTE | 2022-05-30 12:55 | W.PM.NPUPNS ---
Subjective NPU Subjective: Patient presents today continuing to lobby for discharge soon as possible. Support is identified that [facility] will take him. We discussed getting his second loading dose of Invega Sustenna 156mg IM to deltoid possibly tomorrow which would be early but within the therapeutic window with a plan for discharge by Sunday. He reported being satisfied with that. Mental Status Exam MSE Comments: This is a well-nourished well-developed shaved white male in hospital scrubs with appropriate grooming and eye contact. No abnormal movements. Cooperative with exam in no acute distress. Speech was more spontaneous and more normal rate and volume. Mood described as all right, affect congruent. Thought process more organized. Thought content: He denied suicidal or homicidal ideations, no delusions reported and less delusions noted, there were no auditory or visual hallucinations reported. Attention concentration appeared limited and memory was limited but none were formally tested. He is alert and oriented x3, but not purpose. Insight, judgment are improving and impulse control is limited, but improving. Vitals/I&O/Wt Last Vital Signs Temp 98.2 F 05/30/22 06:00 Pulse 80 05/30/22 06:00 Resp 17 05/30/22 06:00 BP 102/62 05/30/22 06:00 Pulse Ox 95 05/30/22 06:00 O2 Del Method 05/29/22 22:00 Data NPU : 05/17/22 17:40 05/17/22 17:40 A&P Assessment and plan (1) Acute psychosis: (2) Auditory hallucination: (3) Schizophrenia: Plan This 36-year-old white male with a long history of mental health and addiction issues who presents with active psychosis and not on any medication. 1. Continue current medication. Changed the Invega 6 mg p.o. daily to p.o. nightly. Initiated Invega Sustenna 234 mg IM to the deltoid first loading dose 05/25/22. Plan for second loading dose 05/31/2022 156 mg IM to the deltoid. 2. Continue every 15 minute checks safety. 3. Encourage individual, group and milieu therapy. 4. Encourage sober living treatment after discharge at the high level of care to which he is willing to commit. 5. Patient also on 21-day hold as of 05/29/2022. 6. We will discharge to [facility] by Sunday. Involuntary Hold Information 96 Hour Hold: 96 Hour Involuntary Admission: No Attestations NPU Medical Necessity Statement*: Inpatient hospitalization is medically necessary if he could be appropriate intervention at this time. We will monitor medications and initiate or make changes as indicated. Likely length of stay 1-3 days. 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
[2022-05-30 14:00] VITALS: BP 113/75; PULSE 93; RESP 16; TEMP 36.6; O2SAT 99
[2022-05-30] MEDS: nicotine 2 mg Gum BUCCAL (16:36)
[2022-05-30 19:47] VITALS: BP 126/69; PULSE 94; RESP 16; TEMP 36.6; O2SAT 96
[2022-05-31 06:00] VITALS: BP 100/64; PULSE 81; RESP 16; TEMP 36.9; O2SAT 96
[2022-05-31] MEDS: nicotine 4 mg lozenge MUCOUS MEM ×2 (08:21→16:36)
[2022-05-31] MEDS: paliperidone palmitate 156 mg Syringe IM (13:01)
[2022-05-31 14:00] VITALS: BP 122/76; PULSE 94; RESP 16; TEMP 36.6; O2SAT 98
--- NOTE | 2022-05-31 14:25 | W.PM.NPUPNS ---
Subjective NPU Subjective: Patient presented today reporting that he is looking forward to discharge to [facility]. We discussed him getting his second loading dose of Invega Sustenna 100 mg IM to the deltoid. He was agreeable and we discussed a plan for discharge tomorrow. Mental Status Exam MSE Comments: This is a well-nourished well-developed shaved white male in hospital scrubs with appropriate grooming and eye contact. No abnormal movements. Cooperative with exam in no acute distress. Speech was more spontaneous and more normal rate and volume. Mood described as pretty good, affect congruent. Thought process more organized. Thought content: He denied suicidal or homicidal ideations, no delusions reported and less delusions noted, there were no auditory or visual hallucinations reported. Attention concentration appeared limited and memory was limited but none were formally tested. He is alert and oriented x3, but not purpose. Insight, judgment are improving and impulse control is limited, but improving. Vitals/I&O/Wt Last Vital Signs Temp 98 F 05/31/22 14:00 Pulse 94 05/31/22 14:00 Resp 16 05/31/22 14:00 BP 122/76 05/31/22 14:00 Pulse Ox 98 05/31/22 14:00 O2 Del Method 05/31/22 14:00 Data NPU : 05/17/22 17:40 05/17/22 17:40 A&P Assessment and plan (1) Acute psychosis: (2) Auditory hallucination: (3) Schizophrenia: Plan This 36-year-old white male with a long history of mental health and addiction issues who presents with active psychosis and not on any medication. 1. Continue current medication. Changed the Invega 6 mg p.o. daily to p.o. nightly. Initiated Invega Sustenna 234 mg IM to the deltoid first loading dose 05/25/22. Second loading dose 05/31/2022 156 mg IM to the deltoid. 2. Continue every 15 minute checks safety. 3. Encourage individual, group and milieu therapy. 4. Encourage sober living treatment after discharge at the high level of care to which he is willing to commit. 5. Patient also on 21-day hold as of 05/29/2022. 6. Plan for discharge tomorrow. Involuntary Hold Information 96 Hour Hold: 96 Hour Involuntary Admission: No Attestations NPU Medical Necessity Statement*: Inpatient hospitalization is medically necessary if he could be appropriate intervention at this time. We will monitor medications and initiate or make changes as indicated. Tentative discharge tomorrow. Coding Level of Care Code Acute Surgical Device Sales Representative for Dalton Boyer Diagnoses Acute psychosis F23 Auditory hallucination R44.0 Schizophrenia F20.9
[2022-05-31] MEDS: trazodone 50 mg Tablet PO (20:09)
[2022-05-31] MEDS: hyDROXYzine 25 mg Capsule 50 MG PO (20:09)
[2022-05-31 20:32] VITALS: BP 132/78; PULSE 91; RESP 18; TEMP 36.6; O2SAT 98
[2022-06-01 06:00] VITALS: BP 97/57; PULSE 74; RESP 16; TEMP 36.3; O2SAT 97
--- NOTE | 2022-06-01 06:39 | W.PM.NPUPNS ---
Subjective NPU Subjective: Patient presented today reporting that he is happy overall with the plan for discharge tomorrow. He would prefer being discharged today. However he did accept his second injection of the loading dose of Invega Sustenna 156 mg IM to the deltoid. We discussed the plan to discharge to [facility] tomorrow whenever they are able to pick him up. He reports he is sleeping fine and happy about finally leaving. Mental Status Exam MSE Comments: This is a well-nourished well-developed shaved white male in hospital scrubs with appropriate grooming and eye contact. No abnormal movements. Cooperative with exam in no acute distress. Speech was more spontaneous and more normal rate and volume. Mood described as pretty good, affect congruent. Thought process more organized. Thought content: He denied suicidal or homicidal ideations, no delusions reported and less delusions noted, there were no auditory or visual hallucinations reported. Attention concentration appeared limited and memory was limited but none were formally tested. He is alert and oriented x3, but not purpose. Insight, judgment are improving and impulse control is limited, but improving. Vitals/I&O/Wt Last Vital Signs Temp 97.4 F L 06/01/22 06:00 Pulse 74 06/01/22 06:00 Resp 16 06/01/22 06:00 BP 97/57 06/01/22 06:00 Pulse Ox 97 06/01/22 06:00 O2 Del Method 05/31/22 14:00 Data NPU : 05/17/22 17:40 05/17/22 17:40 A&P Assessment and plan (1) Acute psychosis: (2) Auditory hallucination: (3) Schizophrenia: Plan This 36-year-old white male with a long history of mental health and addiction issues who presents with active psychosis and not on any medication. 1. Continue current medication. Changed the Invega 6 mg p.o. daily to p.o. nightly. Initiated Invega Sustenna 234 mg IM to the deltoid first loading dose 05/25/22. Second loading dose 05/31/2022 156 mg IM to the deltoid. 2. Continue every 15 minute checks safety. 3. Encourage individual, group and milieu therapy. 4. Encourage sober living treatment after discharge at the high level of care to which he is willing to commit. 5. Patient also on 21-day hold as of 05/29/2022. 6. Plan for discharge tomorrow. Involuntary Hold Information 96 Hour Hold: 96 Hour Involuntary Admission: No Coding Level of Care Code Acute Parts Sales Counterperson for [facility] Fwd Diagnoses Acute psychosis F23 Auditory hallucination R44.0 Schizophrenia F20.9
[2022-06-01] MEDS: nicotine 4 mg lozenge MUCOUS MEM ×2 (07:01→13:20)
[2022-06-01 12:24] VITALS: BP 97/57; PULSE 74; RESP 16; TEMP 36.3; O2SAT 97
--- NOTE | 2022-06-01 12:43 | W.PM.NPUDCS ---
Diagnoses at Discharge Discharge Diagnosis (1) Acute psychosis: Status: Acute (2) Auditory hallucination: Status: Acute (3) Schizophrenia: Status: Acute Reason for Visit Reason for Visit: psych evaluaton Hospital Course Hospital Course He slowly acclimated to the individual, group and milieu therapies provided.? He presented again resistant to medication however he did respond to the fact that taking medication would assist him in getting out of the hospital sooner. He started Invega 6 mg p.o. every morning which was switched to bedtime. He had described a plan to discontinue the medication after discharge. And so for that reason and evidence related to ongoing adherence he was switched over to Invega Sustenna. He was placed on a 96-hour hold during the stay which was extended to a 21-day hold but he was discharge significantly sooner than the hold would have justified. He showed significant improvement and was able to contract for safety outside of the hospital prior to discharge.? During the hospitalization, patient had routine laboratory studies which were within normal limits except for few outliers.? Additionally there was a general medical evaluation which was also within normal limits and revealed no new acute processes. Discharge Summary: At the time of discharge, he denied lethality and psychosis was resolving.? Mood and anxiety were well managed.? Patient endorsed a plan to avoid all drugs of abuse and follow-up with the aftercare recommendations of the treatment team.? Patient was evaluated and deemed to be absent credible lethality, and had achieved significant benefit from an inpatient hospitalization and his hold was ending and we lacked solid grounds to force continued hospitalization, so he was discharged. Involuntary Hold Information 96 Hour Hold: 96 Hour Involuntary Admission: No Mental Status Exam MSE Comments: This is a well-nourished well-developed shaved white male in hospital scrubs with appropriate grooming and eye contact. No abnormal movements. Cooperative with exam in no acute distress. Speech was more spontaneous and more normal rate and volume. Mood described as pretty good, affect congruent. Thought process more organized. Thought content: He denied suicidal or homicidal ideations, no delusions reported and less delusions noted, there were no auditory or visual hallucinations reported. Attention concentration appeared limited and memory was limited but none were formally tested. He is alert and oriented x3, but not purpose. Insight, judgment are improving and impulse control is limited, but improving. Discharge Data Studies Completed and Pending: Laboratory Results WBC 6.9 10^3/uL (4.0- 10.0) 05/17/22 17:40 RBC 4.98 10^6/uL (4.1 -5.3) 05/17/22 17:40 Hgb 15.9 g/dL (11.7-1 6.6) 05/17/22 17:40 Hct 48.1 % (42.0-52.0 ) 05/17/22 17:40 MCV 96.6 fl (80-94) H 05/17/22 17:40 MCH 31.9 pg (28.0-34. 0) 05/17/22 17:40 MCHC 33.1 g/dL (30.0-3 6.0) 05/17/22 17:40 RDW 12.7 % (12.1-15.1 ) 05/17/22 17:40 Plt Count 200 10^3/cmm (130 -400) 05/17/22 17:40 MPV 10.9 fL (7.4-10.4 ) H 05/17/22 17:40 Neut % (Auto) 63.9 % 05/17/22 17:40 Lymph % (Auto) 26.2 % 05/17/22 17:40 [place] % (Auto) 6.4 % 05/17/22 17:40 Eos % (Auto) 2.8 % 05/17/22 17:40 Baso % (Auto) 0.6 % 05/17/22 17:40 Neut # (Auto) 4.40 10^3/uL (1.8 -7.7) 05/17/22 17:40 Lymph # (Auto) 1.8 10^3/uL (0.8- 4.8) 05/17/22 17:40 [place] # (Auto) 0.4 10^3/uL (0.2- 0.9) 05/17/22 17:40 Eos # (Auto) 0.2 10^3/uL (0.0- 0.8) 05/17/22 17:40 Baso # (Auto) 0.0 10^3/uL (0.0- 0.1) 05/17/22 17:40 Nucleated RBC % (a uto) 0 % 05/17/22 17:40 Nucleated RBCs # 0.0 /100WBC 05/17/22 17:40 Sodium 139 mmol/L (136-1 45) 05/17/22 17:40 Potassium 4.1 mmol/L (3.5-5 .1) 05/17/22 17:40 Chloride 103 mmol/L (98-10 7) 05/17/22 17:40 Carbon Dioxide 25 mmol/L (22-29) 05/17/22 17:40 Anion Gap 15.1 (5-19) 05/17/22 17:40 BUN 10 mg/dL (6-20) 05/17/22 17:40 Creatinine 0.8 mg/dL (0.7-1. 2) 05/17/22 17:40 GFR Calculation 110.7 mL/min (90- 130) 05/17/22 17:40 Glucose 117 mg/dL (65-115 ) H 05/17/22 17:40 Calculated Osmolal ity 288 mOsm/kg (285- 295) 05/17/22 17:40 Calcium 8.8 mg/dL (8.5-10 .5) 05/17/22 17:40 Total Bilirubin 0.3 mg/dL (0.15-1 .2) 05/17/22 17:40 AST 13 U/L (0-40) 05/17/22 17:40 ALT 14 U/L (0-41) 05/17/22 17:40 Alkaline Phosphata se 117 U/L (40-130) 05/17/22 17:40 Total Protein 6.7 g/dL (6.6-8.7 ) 05/17/22 17:40 Albumin 3.9 g/dL (3.5-5.2 ) 05/17/22 17:40 Globulin 2.8 g/dL (1.3-4.6 ) 05/17/22 17:40 Lipase 22 U/L (13-60) 05/17/22 17:40 Salicylates < 0.3 mg/dL (3-10 ) L 05/17/22 17:40 Urine Opiates Scre en Negative ng/mL (N egative) 05/17/22 17:26 Acetaminophen < 5.0 ug/mL (10-3 0) L 05/17/22 17:40 Ur Barbiturates Sc reen Negative ng/mL (N egative) 05/17/22 17:26 Ur Phencyclidine S crn Negative ng/mL (N egative) 05/17/22 17:26 Ur Amphetamines Sc reen Negative ng/mL (N egative) 05/17/22 17:26 U Benzodiazepines Scrn Negative ng/mL (N egative) 05/17/22 17:26 Urine Cocaine Scre en Negative ng/mL (N egative) 05/17/22 17:26 U Marijuana (THC) Screen Positive ng/mL (N egative) H 05/17/22 17:26 Ethyl Alcohol < 10 mg/dL (0-10) 05/17/22 17:40 Vitals: Last Vital Signs Temp 97.4 F L 06/01/22 06:00 Pulse 74 06/01/22 06:00 Resp 16 06/01/22 06:00 BP 97/57 06/01/22 06:00 Pulse Ox 97 06/01/22 06:00 O2 Del Method 05/31/22 14:00 Discharge Plan Discharge Patient Disposition: Home Prescriptions: New hydroxyzine pamoate 25 mg Capsule 50 mg PO Q6H PRN (Reason: Anxiety) 30 Days Qty: 120 1RF trazodone 50 mg Tablet 50 mg PO BEDTIME PRN (Reason: Sleep) 30 Days Qty: 30 1RF Invega Sustenna 156 mg/mL syringe 156 mg IM Q30D 30 Days Qty: 1 1RF Rx Instructions: next injection 06/29/22 No Action No Known Home Medications Discharge Orders: Discharge Order (Routine); Ordered 06/01/22 Ordered By: Jameel Dorado Referrals: [place] [Other] - 06/01/22 [facility] [Outside] - 1-3 days (Walk in from Sunday to Sunday 7:30 am to 3:00 pm. Completed application is with [facility]. ) Discharge Diet: Regular Discharge Activity: Resume usual activity Patient Instructions: Depression, Paliperidone (By injection) (Invega Sustenna, Invega Trinza, Invega..., Hallucinations (DC), Opioid Safety Discharge Attestations NPU Time Spent in Discharge Care*: less than 30 min Specific Discharge Activities: Specific discharge activities: educating patient, discussing with case coordinator/social workers/dc planners, documenting/other paperwork and evaluating patient/reviewing data Coding Level of Care Code Acute Chg FW DC note Diagnoses Acute psychosis F23 Auditory hallucination R44.0 Schizophrenia F20.9
== END 2022-06-01 13:50 | disposition home or self-care (01) | DRG 885 ==
LOC: ER 18:04 → NP 20:07
PROVIDERS: Admitting Provider Psychiatry & Neurology Psychiatry; Emergency Provider Emergency Medicine; Visit Provider Psychiatry & Neurology Psychiatry
DX: F20.9 Schizophrenia, unspecified (principal); R45.851 Suicidal ideations; F10.129 Alcohol abuse with intoxication, unspecified; Y90.6 Blood alcohol level of 120-199 mg/100 ml; F12.90 Cannabis use, unspecified, uncomplicated; Z81.8 Family history of other mental and behavioral disorders
CPT/HCPCS: 36415; 80053; 80306; 80307; 83690; 85025; 96372; 97150; 97165; 99285